=== PATIENT | male | born 1955 | race Caucasian/White ===

== ENCOUNTER 2022-03-08 22:46 | Emergency (ER) | payer OTHER, SELFPAY ==
[2022-03-08 23:02] VITALS: BP 119/80; PULSE 63; RESP 18; TEMP 36.6; O2SAT 98; BMI 24.5
[2022-03-08] MEDS: TETRACAINE 0.5% OPHTH 2 DROP EYE-BOTH (23:18)
[2022-03-08] MEDS: FLUORESCEIN SODIUM TOPICAL STRIP 1 STRIP EYE-BOTH (23:18)
--- NOTE | 2022-03-08 23:27 | ED_ITS ---
HPI - General Adult General Time Seen by Provider: 23:28 Date Seen: 03/08/22 Chief complaint: Eye Problems Stated complaint: object rt eye Time Seen by Provider: 03/08/22 23:01 Source: patient and family Mode of arrival: ambulatory Limitations: no limitations History of Present Illness HPI narrative: 66-year-old male who comes in with foreign body sensation right eye. He was working in once today, noted the right eye felt irritated but initially did not feel like there was anything in it. He tried to avoid rubbing the eye but now he has a foreign body sensation. Some blurry vision and tearing. Does not wear contacts. Related Data Home Medications Medication Instructions Recorded Confirmed Similasan Dry Eye Relief 1 drp PRN 03/08/22 atorvastatin 10 mg tablet 10 mg PO DAILY 03/08/22 03/08/22 butalbital 50 mg-acetaminophen 300 tab PO PRN pain 03/08/22 mg tablet pantoprazole 40 mg tablet,delayed 40 mg PO DAILY 03/08/22 03/08/22 release Allergies Allergy/AdvReac Type Severity Reaction Status Date / Time Penicillins Allergy Unknown Verified 03/08/22 23:09 [facility] Medical History (Updated 03/08/22 @ 23:31 by Jossue Manriquez MD) Anxiety Barretts esophagus BPH (benign prostatic hyperplasia) Chronic migraine w/o aura w/o status migrainosus, not intractable Chronic right shoulder pain Cochlear implant in place GERD (gastroesophageal reflux disease) Hyperlipidemia Major depression in full remission SHAWANDA (obstructive sleep apnea) Surgical History (Updated 03/08/22 @ 23:17 by Becky Khan RN) H/O vitrectomy History of arthroscopy of left shoulder History of arthroscopy of right shoulder S/P left knee arthroscopy S/P TURP (status post transurethral resection of prostate) Exam Narrative: Exam Narrative: General: well nourished , NAD Head: Atraumatic and normocephalic ENT: External ears and external nose are normal Eyes: Conjunctiva injection on the right, no blood or fluid in the anterior chamber. Pupil is reactive to light and accommodation. Tetracaine instilled with resolution of foreign body sensation, No foreign body seen, under fluorescein exam there is a small corneal abrasion superiorly at about 1 o'clock Neck: Full spontaneous range of motion of the neck Lungs: No respiratory distress Musculoskeletal: No tenderness or deformity Neurologic: No gross focal neurologic deficits Skin: No rashes Psych: Mood and affect are appropriate Const: Vital Signs, click to edit/add: Vital Signs - 24 hr 03/08/22 23:02 Temperature 97.8 F Pulse Rate [Right Pulse Oximeter] 63 Respiratory Rate 18 Blood Pressure [Le ft Upper Arm] 119/80 Pulse Oximetry 98 Oxygen Delivery Me thod Room Air Course Course Hospital Course: Patient seen examined, prior records reviewed. Patient with foreign body sensation of the right eye, no definite foreign body exposure and no foreign body seen on exam, there is a small corneal abrasion. No findings for iritis, glaucoma, globe rupture or hyphema. Patient will be discharged with erythromycin ointment and follow-up with eye clinic on Wednesday if not feeling better. Vital Signs Vital signs: Initial Vital Signs Temperature 97.8 F 03/08/22 23:02 Temperature Source Temporal Artery Scan 03/08/22 23:02 Pulse Rate 63 03/08/22 23:02 Pulse Rhythm 03/08/22 23:02 Respiratory Rate 18 03/08/22 23:02 Blood Pressure 119/80 03/08/22 23:02 Blood Pressure Mean 93 03/08/22 23:02 Blood Pressure Position Sitting 03/08/22 23:02 Pulse Oximetry 98 03/08/22 23:02 Oxygen Delivery Method 03/08/22 23:02 Vital Signs Temperature 97.8 F 03/08/22 23:02 Pulse Rate 63 03/08/22 23:02 Respiratory Rate 18 03/08/22 23:02 Blood Pressure 119/80 03/08/22 23:02 Pulse Oximetry 98 03/08/22 23:02 Oxygen Delivery Method 03/08/22 23:02 Temperature 97.8 F 03/08/22 23:02 Pulse Rate 63 03/08/22 23:02 Respiratory Rate 18 03/08/22 23:02 Blood Pressure 119/80 03/08/22 23:02 Pulse Oximetry 98 03/08/22 23:02 Oxygen Delivery Method 03/08/22 23:02 Discharge Plan Discharge Clinical Impression: Corneal abrasion Patient Disposition: Home, Self-Care Condition: Stable Instructions: Corneal Abrasion (DC) Additional Instructions: Apply erythromycin ointment 3 times a day. Follow up in eye clinic on Wednesday if your symptoms are not significantly better Activity Level: No Restrictions Discharge Diet: Regular Prescriptions: No Action atorvastatin 10 mg tablet 10 mg PO DAILY pantoprazole 40 mg tablet,delayed release (DR/EC) 40 mg PO DAILY butalbital-acetaminophen 50-300 mg tablet PO PRN (Reason: pain) Similasan Dry Eye Relief drops 1 drp PRN Label Comments: Similasan Dry Eye Relief Homeopathic eye drops with natural active ingredients Follow Up/Referrals: Deion Wagner MD [Primary Care Provider] - Stand Alone Forms: [email or web address] Info Instructions
== END 2022-03-09 00:15 | disposition home or self-care (01) ==
LOC: ED 23:46
PROVIDERS: Emergency Provider Family Medicine; PCP Family Medicine
DX: S05.01XA Injury of conjunctiva and corneal abrasion without foreign body, right eye, initial encounter (principal)
CPT/HCPCS: 99283; A9270

== ENCOUNTER 2022-05-15 14:15 | Outpatient (CLI) | payer OTHER, SELFPAY ==
[2022-05-15 15:14] LABS: Albumin* 4.4 g/dL (3.3-5.0); Chloride* 102 mmol/L (96-114)
[2022-05-15 15:15] LABS: Potassium* 4.6 mmol/L (3.6-5.1); Sodium* 137 mmol/L (135-149)
[2022-05-15 15:17] LABS: Alkaline Phosphatase* 62 U/L (40-150); Aspartate Amino Transferase* 30 U/L (12-35); Bilirubin Direct* 0.2 mg/dL (0.0-0.5); Bilirubin Total* 0.6 mg/dL (0.1-1.5); Blood Urea Nitrogen* 20 mg/dL (7-30); Calcium* 8.6 mg/dL (8.4-10.6); Carbon Dioxide* 26 mmol/L (20-32); Cholesterol* 223 mg/dL (90-199); Creatinine* 0.8 mg/dL (0.5-1.5); Estimated Glomerular Filt Rate 99 ml/min; Glucose* 83 mg/dL (60-115); Total Protein* 7.1 g/dL (6.0-8.3); Triglycerides* 206 mg/dL (40-149)
[2022-05-15 15:18] LABS: Alanine Aminotransferase* 35 U/L (4-50); HDL Cholesterol* 52 mg/dL (>=40); LDL Cholesterol Calculated 130 mg/dL (<100)
[2022-05-15 15:47] LABS: PSA Screen* 3.29 ng/mL (0.10-4.00)
== END 2022-05-15 14:16 | disposition home or self-care (01) ==
PROVIDERS: PCP Family Medicine; Visit Provider Family Medicine
DX: Z00.00 Encounter for general adult medical examination without abnormal findings (principal); E78.5 Hyperlipidemia, unspecified; Z12.5 Encounter for screening for malignant neoplasm of prostate
CPT/HCPCS: 80048; 80061; 80076; 84153

== ENCOUNTER 2023-01-18 09:02 | Outpatient (CLI) | payer MEDICARE, OTHER, SELFPAY | END 2023-01-18 09:03 | disposition home or self-care (01) | PROVIDERS: PCP Family Medicine; Visit Provider Family Medicine | DX: Z01.818 Encounter for other preprocedural examination (principal); E78.5 Hyperlipidemia, unspecified; F33.9 Major depressive disorder, recurrent, unspecified | CPT/HCPCS: 80048; 85025 ==

== ENCOUNTER 2023-05-07 13:13 | Outpatient (CLI) | payer MEDICARE, OTHER, SELFPAY | END 2023-05-07 13:14 | disposition home or self-care (01) | PROVIDERS: PCP Family Medicine; Visit Provider Family Medicine | DX: E78.5 Hyperlipidemia, unspecified (principal) | CPT/HCPCS: 80061; 84460 ==

== ENCOUNTER 2023-07-14 08:57 | Day surgery (SDC) | payer MEDICARE, OTHER, SELFPAY ==
[2023-07-14] MEDS: TETRACAINE 0.5% OPHTH 1 DROP EYE-LEFT ×2 (09:10→09:14)
[2023-07-14] MEDS: KETOROLAC OPHTH 0.5% 1 DROP EYE-LEFT ×3 (09:13→09:21)
[2023-07-14] MEDS: SODIUM CHLORIDE 0.9 % (FLUSH) 10 ML SYRINGE IVF (09:15)
[2023-07-14 09:23] VITALS: BP 113/73; PULSE 56; RESP 16; TEMP 36.6; O2SAT 94; BMI 26.9
--- NOTE | 2023-07-14 09:28 | SUR.PREOP ---
The eye drops brought by the patient Prednisolone) are examined and I have determined they are labeled by the patient's pharmacy for this patient as prescribed by the surgeon. The bottles are intact, recently obtained and appear to be correct. Ketorolac obtained by [facility] pharmacy.
[2023-07-14] MEDS: TETRACAINE 0.5% OPHTH 2 DROP EYE-LEFT (10:39)
[2023-07-14] MEDS: BALANCED SALT IRRIG SOLN 15 ML EYE-LEFT (10:42)
[2023-07-14 11:21] VITALS: BP 112/74; PULSE 53; RESP 16; TEMP 36.8; O2SAT 98
--- NOTE | 2023-07-14 11:55 | W.PM.OPTPROC ---
Procedure Note Date of procedure: 07/14/23 [facility] bill your pro fee for this procedure?: Yes Procedure Description: SURGEON: Dasha Smith MD PREOPERATIVE DIAGNOSIS: 1. Nuclear sclerotic cataract, left eye. 2. Miosis, left eye. POSTOPERATIVE DIAGNOSIS: 1. Nuclear sclerotic cataract, left eye. 2. Miosis, left eye. NAME OF OPERATION: Phacoemulsification of cataract with posterior chamber intraocular lens implantation in the left eye with pupilloplasty. ANESTHESIA: Topical. ESTIMATED BLOOD LOSS: Less than 2 cc. COMPLICATIONS: None. PATHOLOGY SPECIMEN: None. INDICATIONS: See consult note for details. The risks, benefits and alternatives of the procedure were explained to the patient, who elected to proceed and signed informed consent to do so. PROCEDURE: The patient was brought to the pre-holding area where the left eye was identified as the operative eye. I placed my initials above this eye. The patient received eye drops consisting of 0.5% tetracaine, 1% tropicamide, 10% phenylephrine, and 0.5% ketorolac. The patient was then brought to the operating room where the left eye was again identified as the operative eye. The eye was prepped with Betadine and draped in the usual sterile ophthalmic fashion. A #15 super-sharp blade was used to create a paracentesis site. 1% non-preserved intracameral lidocaine was injected into the anterior chamber. Endocoat was injected into the anterior chamber. A 2.4 mm keratome was used to create a three-plane self-sealing incision 1 mm anterior to the temporal limbus. A #15 super-sharp blade was used to create four additional paracentesis sites. Four Grieshaber iris hooks were placed in order to stretch the iris. A cystotome was used to create an anterior capsular leaflet. The Utrata forceps were used to extend this to form a continuous curvilinear capsulorrhexis. Hydrodissection was performed. The cataract was removed with phacoemulsification using the [id number] technique. The irrigation and aspiration tip was used to remove the remaining cortex. Healon was injected into the capsular bag. An ARIAN ZCB00 intraocular lens of 23.5 diopters was injected into the capsular bag. The four Grieshaber iris hooks were removed. The irrigation and aspiration tip was used to remove the remaining viscoelastic. Miostat was injected into the anterior chamber. Balanced salt solution on a cannula was used to hydrate the wound, and the wound was found to be watertight. The pupil was noted to be round. DISPOSITION: The patient was taken to the recovery room and discharged to home in stable condition. The patient was instructed to call me or go to the emergency department with any sudden change, including dramatic loss of vision, severe pain in the eye or eyebrow region, nausea, or vomiting. The patient will follow up in the clinic tomorrow morning.
--- NOTE | 2023-07-14 12:31 | W.ANESCHARGE ---
Anesthesia Charges Start Date/Time Anesthesia Start Date: 07/14/23 Anesthesia Start Time: 10:34 Stop Date/Time Anesthesia Stop Date: 07/14/23 Anesthesia Stop Time: 11:12
== END 2023-07-14 11:37 | disposition home or self-care (01) ==
PROVIDERS: PCP Family Medicine; Visit Provider Ophthalmology
PROC: (CPT 66982; principal; 2023-07-14 09:00)
DX: H25.12 Age-related nuclear cataract, left eye (principal); H57.03 Miosis
CPT/HCPCS: 66982; 00142; A9270; J2250; J2405; J3010; V2632

== ENCOUNTER 2023-07-28 09:00 | Day surgery (SDC) | payer MEDICARE, OTHER, SELFPAY ==
[2023-07-28] MEDS: TETRACAINE 0.5% OPHTH 1 DROP EYE-RIGHT ×2 (09:00→09:05)
[2023-07-28] MEDS: KETOROLAC OPHTH 0.5% 1 DROP EYE-RIGHT ×3 (09:00→09:10)
--- OUTSIDE RECORDS SUMMARY | 2023-07-28 09:05 | XMS_ITS | Encounter Summary ---
Author Name Unknown Organization [facility] Address [address] [place] [address] Care Team Providers Care Wealth Management Consultant Name Role Phone None Reported, Pcp Primary Care Provider Unavail able Reason for Visit * Appointment Request (Routine) - Closed Specialty Diagnoses / Procedures Referred By Contangelica t Referred To Contact Otorhinolaryngology Diagnoses Bone Anchored Hearing Aid (BAHA) Fitting Angelica Zuluaga M.D. [address] [place] [phone] Referral ID Status Reason Start Date Expiration Date Visits Re quested Visits Authorized [id number] Closed 12/31/2022 12/31/2023 2 2 Encounter Details Date Type Department Care Team (Latest Contact Info) Description 02/19/2023 11:30 AM CDT Office Visit Department of Otorhinolaryngology in [place], [place] [address] [place] [phone] Angelica Zuluaga M.D. 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 No 10/28/2022 Within the last year, have y ou been humiliated or emotionally abused in other ways by your partner or ex-partner? No Within the last year, have y ou been kicked, hit, slapped, or otherwise physically hurt by your partner or ex-partner? No 10/28/2022 Within the last year, have y ou been raped or forced to have any kind of sexual activity by your partner or ex-partner? No 10/28/2022 Social Connection and Isolation Panel [NHANES] A nswer Date Recorded In a typical week, how many times do you talk on the phone with family, friends, or neighbors? Twice a week 10/28/2022 How often do you get together with friends or re latives? Once a week 10/28/2022 How often do you attend episcopal or rastafarian serv ices? Never 10/28/2022 Do you belong to any clubs o r organizations such as episcopal groups, unions, fraternal or athletic groups, or school groups? No 10/28/2022 How often do you attend meet ings of the clubs or organizations you belong to? Never 10/28/2022 Are you , , di vorced, , never , or living with a partner? 10/28/2022 AUDIT-C Answer Date Recorded Q1: How often do you have a drink containing alc ohol? 2-4 times a month 10/28/2022 Q2: How many drinks containi ng alcohol do you have on a typical day when you are drinking? 1 or 2 10/28/2022 Q3: How often do you have si x or more drinks on one occasion? Less than monthly 10/28/2022 Overall Financial Resource Strain (CARDIA) Answe r Date Recorded How hard is it for you to pa y for the very basics like food, housing, medical care, and heating? Not hard at all 10/28/2022 [facility] [place] of Occupat ional Health - Occupational Stress Questionnaire Answer Date Recorded Do you feel stress - tense, restless, nervous, or anxious, or unable to sleep at night because your mind is troubled all the time - these days? Very much 10/28/2022 Exercise Vital Sign Answer Date Recorde d On average, how many days pe r week do you engage in moderate to strenuous exercise (like a brisk walk)? 0 days 10/28/2022 On average, how many minutes do you engage in exercise at this level? 0 min 10/28/2022 Hunger Vital Sign Answer Date Recorded Within the past 12 months, y ou worried that your food would run out before you got the money to buy more. Never true 10/29/19 Within the past 12 months, t he food you bought just didn't last and you didn't have money to get more. Never true 10/28/2022 PRAPARE - Transportation Answer Date Re corded In the past 12 months, has l ack of transportation kept you from medical appointments or from getting medications? No 10/04 In the past 12 months, has l ack of transportation kept you from meetings, work, or from getting things needed for daily living? No 10/28/2022 Housing Stability Vital Sign Answer Jenaro e Recorded In the last 12 months, was t here a time when you were not able to pay the mortgage or rent on time? No 10/28/2022 In the last 12 months, how many places have you lived? 1 10/28/2022 In the last 12 months, was t here a time when you did not have a steady place to sleep or slept in a detention (including now)? No 10/28/2022 Nutrition Answer Date Recorded Nutrition: EVOO Fat Source No 10/28 On average, how many serving s of fruits and vegetables do you eat per day (serving size is equal to 1 cup or approximately the size of a tennis ball)? 0-1 10/28/2022 Dental Answer Date Recorded Dental: Regular Dentist Yes 10/29/19 Employment Answer Date Recorded Employment status Employed but not working due sarika galdamez 10/28/2022 Education Answer Date Recorded What is the highest level of school you have completed or the highest degree you have received? Some college, no degree 10/28/2022 Sex and Gender Information Value Date Recorded Sex Assigned at Male 10/28/2022 11:01 AM CDT Gender Identity Male 10/28/2022 11:01 AM CDT Sexual Orientation Straight 10/28/2022 11 :01 AM CDT documented as of this encounter Progress Notes * Angeilca Zuluaga M.D. - 02/19/2023 11:30 AM CDT FOLLOW-UP CLINIC NOTE OBJECTIVE CHIEF COMPLAINT/PUPROSE OF VISIT: Mr. Kiran is a 67 y.o. male who underwent removal of a cochlear attract and placement of an OSIA HISTORY OF PRESENT ILLNESS: Overall he has been doing very well. He does not report any significant problems in the postoperative setting. No drainage or concerns regarding his wound or incision. He is not yet met with spray unit feeder to turn on the device. He is no concerns for me toda The following portions of the patient's history were reviewed and updated as appropriate: allergies, current medication, family history, medical history, surgical history, social history, problem list. SUBJECTIVE FOCUSED PHYSICAL EXAM: General: Awake, alert, oriented times three. In no acute distress. Head: Normocephalic, atraumatic. Face: Symmetric. Ears: Pinnae are unremarkable. Operated ear shows well-healed postauricular incision. Devices in good placement. No concerns for skin breakdown or separation of the wound edges. Neuro: Cranial nerves III through XII are grossly intact. ASSESSMENT / PLAN #1 conductive Hearing loss status post conversion of cochlear attract to an OSIA It was a pleasure to see Mr. Kiran today. He has been doing well since surgery and does not report any complications in the immediate postoperative setting. We discussed the possibility of skin breakdown related to the magnet where the device in the future and he should watch out for this. He is going to get the device activated today. He can follow up with me as needed for any additional concerns. Plan: - device activation today - follow up as needed PATIENT EDUCATION Ready to learn, no apparent learning barriers were identified; learning preferences include listening. Explained diagnosis and treatment plan; patient expressed understanding of the content. 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
--- OUTSIDE RECORDS SUMMARY | 2023-07-28 09:05 | XMS_ITS | Encounter Summary ---
Author Name Unknown Organization [facility] Address [address] [place] [address] Care Team Providers Care [place] Clerk Name Role Phone None Reported, Pcp Primary Care Provider Unavail able Reason for Visit * Appointment Request (Routine) - Closed Specialty Diagnoses / Procedures Referred By Contangelica t Referred To Contact Otorhinolaryngology Diagnoses Bone Anchored Hearing Aid (BAHA) Fitting Angelica Zuluaga M.D. [address] [place] [phone] Referral ID Status Reason Start Date Expiration Date Visits Re quested Visits Authorized [id number] Closed 12/31/2022 12/31/2023 2 2 Encounter Details Date Type Department Care Team (Latest Contact Info) Description 02/19/2023 1:00 PM CDT Diagnostic Department of Otorhinolaryngology in [place], [place] [address] [place] [phone] Emory White Au.D., C.C.C.-A [address] [place] [phone] Mixed Conductive And Sensorineural Hearing Loss Unilateral [...] week 10/28/2022 How often do you attend jehovah's witness or yarsanism serv ices? Never 10/28/2022 Do you belong to any clubs o r organizations such as jehovah's witness groups, unions, fraternal or athletic groups, or [...] and heating? Not hard at all 10/28/2022 [facility] [place] of Occupat ional Health - Occupational Stress [...] place to sleep or slept in a group home (including now)? No 10/28/2022 Nutrition Answer Date [...] as of this encounter Progress Notes * Emory White Au.D., C.C.C.-A - 02/19/2023 1:00 PM CDT SUBJECTIVE REFERRAL: Jossue Webb M.D. CHIEF COMPLAINT/REASON FOR VISIT Bone conduction device fitting, accompanied by his Alanna. HISTORY Rashad Kiran is a 67 y.o. male with moderately severe to severe mixed hearing loss in the right ear, normal hearing sensitivity 250-2kHz, mild to moderate sensorineural hearing loss 3k-8kHz in the left ear. His last audiogram was completed 10/29/2022. Dr. Webb's service removed the Cochlear attract implant and then placed a Coclear [id number] on the right side 01/21/2023. OBJECTIVE Mr. Kiran was fit with the following: Right Various Exceptionalities Teacher Cochlear Model Osia 2 Serial number [id number] Warranty date 02/19/2025 Magnet Strength 4 Phone Connectivity Paired to [employer] Smart jean Accessory TV Streamer [id number] Digital Link Calibration measured a coil to coil distance of <2mm. Feedback analyzer and bone conduction direct were measured. Aided testing was performed in soundfield. Please see electronic audiogram. ASSESSMENT/PLAN Care, use, and adjustment were explained and demonstrated to the patient. The patient practiced manipulating the device without difficulty. All questions were answered and the patient expressed an understanding. 1. Begin daily use of bone conduction device. 2. Return for follow-up in 1 month. 3. Contact the clinic with questions or concerns. 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 Osia bone conduction device fitting HISTORY OF PRESENT COMPLAINT Mr. Rashad Kiran is a 67 year old patient who presents for an Osia bone conduction device fitting. OBJECTIVE See Audiological Evaluation Form ASSESSMENT/PLAN S=Soundfield with left ear plugged AR: Osia with left ear plugged CARE PLAN Follow up as needed. 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 Expected: 02/20/2024 (Approximate), Expires: 05/22/2024 documented as of this encounter Procedures Procedure Name Priority Date/Time Associated Diagnosis Comments AUDIOLOGY EVALUATION 02/19/2023 12:00 AM CDT documented in this encounter Results * AUDIOLOGY EVALUATION (02/19/2023 12:00 AM CDT) 02/19/2023 Emory Otero, C.C.C.-A [facility] ORDERABLES documented in this encounter Visit Diagnoses Diagnosis 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
--- OUTSIDE RECORDS SUMMARY | 2023-07-28 09:05 | XMS_ITS | Clinical Summary ---
Author Name Unknown Organization [facility] Address [address] [place] [address] Care Team Providers Care Fountain Pen Nibs Inspector Name Role Phone None Reported, Pcp Primary Care Provider Unavail able Source Comments Patient records contain information from all sites at [facility]. For routine questions regarding patient records, call [phone] during business hours, M-F 8:00 AM - 5:00 PM Central Time. Record requests for emergency care only can be directed to [phone] at any time.[facility] Allergies Active Allergy Reactions Criticality Noted Date Comments Penicillins Other (see comments) ,Hives (Reselect Reaction),Itching,Rash 07/05/1971 Medications Medication Sig Dispensed Refills Start Date End Date Status atorvastatin (LIPITOR) 20 mg tablet Take 20 mg by mouth at bedtime. 0 10/08/2022 Active butalbital-acetamin ophen-caff (FIORICET) 50-300-40 mg per capsule every 6 (six) hours as needed for migraine. 0 10/17/2022 Active esomeprazole (NexIUM) [address] capsule Take 40 mg by mouth every morning before breakfast. 0 10/18/2022 Active tamsulosin (FLOMAX) 0.4 mg 24 hr capsule daily. 0 08/07/2022 Active traZODone (DESYREL) 150 mg tablet Take 150 mg by mouth at bedtime as needed for sleep. Takes trazodone HCL tabs, one 150 mg tablet daily. 0 10/13/2022 Active venlafaxine XR (EFFEXOR-XR) 150 mg 24 hr capsule Take 150 mg by mouth daily. 0 10/22/2022 Active polyethylene glycol (MIRALAX) 17 gram/dose oral powder Take 17 g by mouth as needed for constipation. Dissolve each 17 g dose in 240 mL (8 ounces) of beverage. (Uses either Miralax or Metamucil interchangeably.) 0 Active escitalopram (LEXAPRO) 20 mg tablet Take 20 mg by mouth at bedtime. 0 01/19/2023 Active oxyCODONE (ROXICODONE) 5 mg immediate release tabletIndications:A cute Pain Take 1 tablet (5 mg total) by mouth every 4 (four) hours as needed for severe pain or score 7-10 of 10 Indication: Acute Pain. 5 tablet 0 01/21/2023 Active acetaminophen (TYLENOL) 500 mg tablet Take 2 tablets (1,000 mg total) by mouth every 6 (six) hours as needed for moderate pain or score 4-6 of 10 or mild pain or score 1-3 of 10. 0 01/21/2023 Active Additional Information Patient taking differently:1,000 mg oral Every 6 hours PRN, moderate pain or score 4-6 of 10, mild pain or score 1-3 of 10,Takes four 500 mg at a time for headaches., Informant: Self, Reported on 02/17/2023 ibuprofen (ADVIL,MOTRIN) 200 mg tablet Take 3 tablets (600 mg total) by mouth every 6 (six) hours as needed for pain. Take with food. 0 01/21/2023 Active propranoloL (INDERAL) 10 mg tablet Take 10 mg by mouth 2 (two) times a day. Takes one 10 mg tablet twice daily, total of 20 mg. 0 02/16/2023 Active aspirin-acetaminoph en-caffeine (EXCEDRIN MIGRAINE) 250-250-65 mg per tablet Take 1 tablet by mouth every 6 (six) hours as needed for headaches (Migraines as needed.). 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 Never 10/28/2022 Do you belong to any clubs o r organizations such as temple groups, unions, fraternal or athletic groups, or [...] and heating? Not hard at all 10/28/2022 [facility] [place] of Occupat ional Health - Occupational Stress [...] place to sleep or slept in a care home (including now)? No 10/28/2022 Nutrition Answer [...] Employment status Employed but not working due t kevan [employer] 10/28/2022 Education Answer Date Recorded What is the highest level of school you have completed or the highest degree you have received? Some college, no degree 10/28/2022 Sex and Gender Information Value Date Recorded Sex Assigned at Male 10/28/2022 11:01 AM CDT Gender Identity Male 10/28/2022 11:01 AM CDT Sexual Orientation Straight 10/28/2022 11 :01 AM CDT Last Filed Vital Signs Vital Sign Reading Time Taken Comments Blood Pressure 139/91 01/21/2023 8:31 PM CDT Pulse 59 01/21/2023 8:31 PM CDT Temperature 36.7 ??C (98.1 ??F) 01/21/2023 7:30 PM CD T Respiratory Rate 18 01/21/2023 8:31 PM CDT Oxygen Saturation 95% 01/21/2023 8:31 PM CDT Inhaled Oxygen Concentration - - Weight 81.8 kg (180 lb 5.4 oz) 01/21/2023 12:40 PM CDT Height 177.8 cm (5' 10) 01/21/2023 12:40 PM CDT Body Mass Index 25.88 01/21/2023 12:40 PM CDT Plan of Treatment Health Maintenance Due Date Last Done Comments CT Colonography 1957 Cologuard 1957 Colonoscopy 1957 Colorectal Cancer Screening 1957 FIT 1957 Fasting Glucose for Diabetes Screening 1957 HIV Screening 1957 Hepatitis C Screening 1957 Visit: Annual, age 65+ (or Medicare and <65) 1957 Depression Screening (Annual PHQ-2) 07/05/2023 Fall Risk Screen (Annual) 07/05/2023 DTaP,Tdap,and Td Vaccines (2 - Td or Tdap) 05/05/2031 05/05/2021 Zoster Vaccines Completed 03/13/2020, 09/16/2019 Pneumococcal vaccine (65+ years) Completed 01/19/20 23 Influenza Vaccine Completed 03/19/2023, , 03/29/2021, Additional history exists COVID-19 Vaccine Completed 04/01/2023, , 11/17/2021, Additional history exists Medical Devices Implanted Type Area Prosthodontist/Owner Device Identifier Shelf Expiration Date Model / Serial / Lot Abtmnt Hd Ci Baha Fxtr [id number] [id number] - [id number] Implanted:Qty: 1 on 07/05/2016 at [facility] Explanted: 023 (Quantity not on file) BAHA Device Right: Ear Cochlear Limited 06/02/2027 [id number] / / [id number] Description:Baha device impl anted approximately [address] a Dr[address] Webb, unknown entry. Explanted 01/21/2023. Osia 2 Sound Processor Implanted:Qty: 1 on 01/21/2023 by Jossue Webb M.D. at [facility] Cochlear Implant Right: Ear Cochlear Limited [id number] / / Explanted Type Area Prosthodontist/Owner Device Identifier Shelf Expiration Date Model / Serial / Lot Cochlear Implant Implanted:Angelica Dominguez M.D. (Quantity not on file) Cochlear Implant Right: Ear Advance Directives For more information, please contact: [phone] Latest Code Status on File Code Status Date Activated Date Inactivated Comments Full Code 01/21/2023 7:38 PM 01/21/2023 10:42 PM Question Answer Comments Full Code: Not Discussed Due to: Patient does not have the capaci ty Care Teams Fountain Pen Nibs Inspector Relationship Specialty Start Date End Date None Reported, Pcp PCP - General Family Medicine 01/21/23
--- OUTSIDE RECORDS SUMMARY | 2023-07-28 09:05 | XMS_ITS | Referral Summary ---
Author Name Unknown Organization [facility] Address [address] [place] [address] Care Team Providers Care Talent Acquisition Director Name Role Phone None Reported, Pcp Primary Care Provider Unavail able Source Comments Patient records contain information from all sites at [facility]. For routine questions regarding patient records, call [phone] during business hours, M-F 8:00 AM - 5:00 PM Central Time. 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 Never 10/28/2022 Do you belong to any clubs o r organizations such as druze groups, unions, fraternal or athletic groups, or [...] and heating? Not hard at all 10/28/2022 [facility] [place] of Occupat ional Health - Occupational Stress [...] place to sleep or slept in a intermediate (including now)? No 10/28/2022 Nutrition Answer Date [...] 01/21/2023 12:40 PM CDT Plan of Treatment Not on file Medical Devices Implanted Type Area Agency Legal Counsel Device Identifier Shelf Expiration Date Model / Serial / Lot Abtmnt Hd Ci Baha Fxtr [id number] 4 - [id number] Implanted:Qty: 1 on 07/05/2016 at [facility] Explanted: 023 (Quantity not on file) BAHA Device Right: Ear Cochlear Limited 06/02/2027 [id number] / / [id number] Description:Baha device impl anted approximately [address] a Dr. Webb, unknown entry. Explanted 01/21/2023. Osia 2 Sound Processor Implanted:Qty: 1 on 01/21/2023 by Jossue Webb M.D. at [facility] Cochlear Implant Right: Ear Cochlear Limited [id number] / / Explanted Type Area Agency Legal Counsel Device Identifier Shelf Expiration Date Model / Serial / Lot Cochlear Implant Implanted:Angelica Dominguez M.D. (Quantity not on file) Cochlear Implant Right: Ear Advance Directives For more information, please contact: [phone] Latest Code Status on File Code Status Date Activated Date Inactivated Comments Full Code 01/21/2023 7:38 PM 01/21/2023 10:42 PM Question Answer Comments Full Code: Not Discussed Due to: Patient does not have the [facility] Care Teams Talent Acquisition Director Relationship Specialty Start Date End Date None Reported, Pcp PCP - General Family Medicine 01/21/23
--- OUTSIDE RECORDS SUMMARY | 2023-07-28 09:05 | XMS_ITS | Encounter Summary ---
Author Name Unknown Organization [facility] Address [address] [place] [address] Care Team Providers Care Manager Night Name Role Phone None Reported, Pcp Primary Care Provider Unavail able Reason for Visit * Reason Onset Date Comments Blood Pressure 02/17/2023 Encounter Details Date Type Department Care Team (Latest Contact Info) Description 02/17/2023 12:30 PM CDT Clinical Communication Virtual Review in [place], [place] [address] [place], [place] [id number] Blood Pressure Social History Tobacco Use Types Packs/Day Years [...] often do you attend jehovah's witness or jew serv ices? Never 10/28/2022 Do you belong [...] and heating? Not hard at all 10/28/2022 [facility] [place] of Occupat ional Health - Occupational Stress [...] money to buy more. Never true 10/29/19 23 Within the past 12 months, t he [...] place to sleep or slept in a fci (including now)? No 10/28/2022 Nutrition Answer Date [...] AM CDT documented as of this encounter Plan of Treatment Not on file documented as of this encounter Visit Diagnoses Not on filedocumented in this encounter Care Teams Manager Night Relationship Specialty Start Date End Date None Reported, Pcp PCP - General Family Medicine 01/21/23 documented as of this encounter
--- OUTSIDE RECORDS SUMMARY | 2023-07-28 09:05 | XMS_ITS ---
Author Name Unknown Organization [facility] Address [address] [place] [address] Care Team Providers Care All Round Logger Name Role Phone Unavailable Unavailable Unavailable Surgery Details Not on file Complications Check Surgery Details section. Procedure Estimated Blood Loss Check Surgery Details section. Procedure Findings Check Surgery Details section. Procedure Specimens Taken Check Surgery Details section.
--- OUTSIDE RECORDS SUMMARY | 2023-07-28 09:05 | XMS_ITS | Encounter Summary ---
Author Name Unknown Organization [facility] Address [address] [place] [address] Care Team Providers Care Traffic Supervisor Name Role Phone None Reported, Pcp Primary Care Provider Unavail able Reason for Visit * Auth/Cert (Routine) Specialty Diagnoses / Procedures Referred By Katelyn baum Referred To Contact Diagnoses Loss Hearing Right Loss Hearing Right [H91.91] Procedures NV IMPLTJ OI IMPLT SKL TC KIANA NV AUDITORY OSSEO DEV INT/EXT COMP PLACEMENT BONE ANCHORED HEARING AID,OSIA, proceed as indicated Referral ID Status Reason Start Date Expiration Date Visits Re quested Visits Authorized [id number] 1 1 Encounter Details Date Type Department Care Team (Late st Contact Info) Description 01/21/2023 5:29 PM CDT Anesthesia Event [facility] [address] [place] [phone] Pablo Field M.D. [address] [place] [phone] Raúl Akers M.D., M.P.H. [address] [place] [phone] Anesthesia Record Procedure Summary Procedure Name Responsible Anesthesiologist Anesthesia Start Time Anesthesia Stop Time PLACEMENT BONE ANCHORED HEARING AID, OSIA (Right) Pablo Field M.D. 01/21/23 1729 01/21/23 1933 Events Date Time Event Comment 01/21/2023 1729 An Start Machine/Equipme nt Checked Infection Precautions Followed Procedure/Site Verified NPO Status Verified Supine Standard ASA Monitors Applied 1738 An Induction 1740 An Intubation 1743 Turnover to Proceduralist 1815 Proc Start 1915 Proc Fin 1916 Turnover to ANE Staff 1918 Airway Removal Criteria Met 1919 Extubation/Airway Removed 1920 an stop data 1932 An End I completed my handoff to the receiving staff during which we 1. Identified the patient 2. Identified the responsible provider 3. Reviewed the pertinent medical history 4. Discussed the surgical course 5. Reviewed intra-op anesthesia management and issues during anesthesia 6. Set expectations for post-procedure period 7. Allowed opportunity for questions and acknowledgement of understanding. Meds Name Total fentanyl injection 50 mcg/mL 175 mcg lidocaine 2% (mg) injection 100 mg rocuronium 10 mg/mL injection 20 mg succinylcholine 20 mg/mL injection 100 m g ePHEDrine PF 5 mg/mL syringe injection 5 mg ondansetron 4 mg/2 mL injection 4 mg propofol 10 mg/mL infusion 903.89 mg propofol 10 mg/mL injection 270 mg dexAMETHasone (DECADRON) injection 4 mg/ mL 4 mg ceFAZolin injection 2,000 mg (ANCEF) 2 g haloperidol 5 mg/mL injection 1 mg Lactated Ringers Free Drip 500 mL * Agents No agents on file. * Blood No blood administrations on file. Lines, Drains, and Airways Type Details Placement Removal Wound 01/21/23; 1816; N; 01/21/23; Incision; Ear; Right; surgical incision; gauze/head wrap 01/21/231816 by Lindsey Centeno, R.N. Peripheral IV Placement Date: 01/03 ; Placement Time: 1626; Catheter Size: 20 G; Orientation: Left; Location: Forearm; Site Prep: Chlorhexidine (Preferred); Inserted by: [facility]; Removal Date: 01/21/23; Removal Time: 203601/21/231626 by Man Locke 01/21/232036 by Yu Centeno, RGuanacoNGuanaco ETT Placement Date: 01/03 ; Placement Time: 1739 (created via procedure documentation); Mask Ventilation: Easy mask; Type: Standard ETT; Single Lumen Tube Size: 7.5 mm; Cuffed: Yes; Blade Size: Morris 2; Location: Oral; Grade View: Grade 1; Insertion Attempts: 1; Placement Verification: Bilateral breath sounds, Positive ETCO2, Symmetrical chest wall movement; Removal Date: 01/21/23; Removal Time: 191901/21/231739 by Marivel Hoffmann APRN, CRNA, D.N.P. 01/21/231919 by Rashad Moreno APRN, CRNA documented in this encounter Social History Tobacco Use Types Packs/Day Years [...] week 10/28/2022 How often do you attend sikhism or rastafari serv ices? Never 10/28/2022 Do you belong to any clubs o r organizations such as sikhism groups, unions, fraternal or athletic groups, or [...] and heating? Not hard at all 10/28/2022 [facility] of Occupat ional Health - Occupational Stress [...] place to sleep or slept in a senior care (including now)? No 10/28/2022 Nutrition Answer Date [...] AM CDT documented as of this encounter OR Notes * Anesthesia Postprocedure Evaluation - Pablo Field M.D. - 01/21/2023 8:17 PM CDT Patient: Rashad Kiran Procedure Summary Date: 01/21/23 Room / Location: [place] [address] / [facility] in [place], [place] Anesthesia Start: 1728 Anesthesia Stop: 1932 Procedure: PLACEMENT BONE ANCHORED HEARING AID, OSIA (Right) Diagnosis: Loss Hearing Right (Loss Hearing Right [H91.91].) Providers: Jossue Webb M.D. Responsible Provider: Pablo Field M.D. Anesthesia Type: general ASA Status: 2 Anesthesia Type: general Last vitals Vitals Value Taken Time BP 139/91 01/21/232014 Temp 36.7 ??C 01/21/23 193 Pulse 59 01/21/232015 Resp 16 01/21/23 2016 SpO2 95 % 01/21/23 2016 Vitals shown include unvalidated device data. Please reference Vitals flowsheet for most recent vital signs. Anesthesia Post Evaluation Patient Disposition: dismissal Cardiovascular status: hemodynamics (HR & BP) acceptable Respiratory status: patent airway with spontaneous effort Temperature: normothermic Oxygen requirements: room air Level of consciousness: awake Pain score: pain adequately controlled and/or at baseline Post Op nausea/vomiting: none Hydration status: euvolemic * Anesthesia Procedure Notes - Marivel Hoffmann APRN, ORACLE EBS CONSULTANT, D.N.P. - 01/21/2023 5:57 PM CDTAssociated Order(s): Airway Airway Date/Time: 01/21/2023 5:40 PM Performed by: Marivel Hoffmann APRN, CRNA, D.N.P. Authorized by: Lisa Alex M.D., M.P.H. Patient location during procedure: OR / Procedure Area PROCEDURE DETAILS: Mask difficulty assessment: easy mask Final airway type: direct laryngoscopy, intubation Laryngeal Manipulation: no Final airway difficulty of direct laryngoscopy (DL): 0-easy Final best view of glottic structures - Cormack/Lehane Score: grade 1 ETT location: oral Adult blade type: Morris 2 Adult tube size: 7.5 Adult ETT distance at teeth/gum: 23 Oral tube type: standard ETT Cuffed: yes Number of attempt to successful placement: 1 Airway confirmation: bilateral breath sounds, positive ETCO2 and bilateral chest rise Other previous techniques attempted: none PRE PROCEDURE DETAILS: Pre evaluation for airway management: procedure Urgency: elective Preop assessment of probable difficulty: no difficulty anticipated Preoxygenation: bag valve mask SEDATION / ANESTHESIA Anesthesia method: anesthesia POST PROCEDURE DETAILS: Procedure outcome: successful Airway event: no complications * Anesthesia Preprocedure Evaluation - Raúl Akers M.D., M.P.H. - 01/21/2023 4:39 PM CDT Preprocedure Anesthesia & H&P Assessment Procedure Summary Date/Time: 01/21/23 1447 Procedure: PLACEMENT BONE ANCHORED HEARING AID, OSIA, proceed as indicated. (Right) Diagnosis: Loss Hearing Right [H91.91] Pre-op diagnosis: Loss Hearing Right [H91.91]. Location: [address] 03 [facility] in [place], [place] Providers: Angelica Zuluaga M.D. Pertinent components of the patient's history including current problem list, medical history, surgical history, family history, social history, medications and allergies were reviewed. Present illness and pre-op diagnosis were confirmed. The planned surgery / procedure was verified with the patient / legal guardian. The patient's general health condition remains unchanged RELEVANT COMORBID CONDITIONS No relevant active problems OBJECTIVE PHYSICAL EXAMINATION Airway (HEENT) Mallampati: II TM Distance: >3 FB Neck ROM: Full Mouth Opening: >3 cm Cardiovascular Rhythm: Regular Rate: Normal Cardiovascular Assessment: cardiovascular normal Functional Capacity: >4 METS Pulmonary Pulmonary Assessment: Clear General / Constitutional Constitutional Assessment: Normal General State of Health:: healthy appearing and calm Neurological Neurologic Assessment: alert Dental Dental Assessment: dentition intact ASSESSMENT / PLAN ANESTHESIA PLAN ASA: 2 Anesthesia Plan: general Patient seen and allergies reviewed, anesthesia plan and risks discussed directly with patient /legal guardian or through an telemetry nurse. The use of blood products not discussed Approval to Proceed: approved for anesthesia documented in this encounter Plan of Treatment Not on file documented as of this encounter Procedures Procedure Name Priority Date/Time Associated Diagnosis Comments LDA ANE ENDOTRACHEAL AIRWAY Routine 01/21/2023 5:40 PM CDT documented in this encounter Results * LDA ANE ENDOTRACHEAL AIRWAY (01/21/2023 5:40 PM CDT) Narrative Marivel Hoffmann APRN, CRNA, D.N.P. - 01/21/2023 5:40 PM CDT Marivel Hoffmann APRN, CRNA D.N.P. ? 01/21/2023 ??5:57 PM Airway Date/Time: 01/21/2023 5:40 PM Performed by: Marivel Hoffmann APRN, CRNA, D.N.P. Authorized by: Lisa Alex M.D., M.P.H. ?? Patient location during procedure: OR / Procedure Area PROCEDURE DETAILS: Mask difficulty assessment: easy mask Final airway type: direct laryngoscopy, intubation Laryngeal Manipulation: no ?? Final airway difficulty of direct laryngoscopy (DL): 0-easy Final best view of glottic structures - Cormack/Lehane Score: grade 1 ETT location: oral Adult blade type: Morris 2 Adult tube size: 7.5 Adult ETT distance at teeth/gum: 23 Oral tube type: standard ETT Cuffed: yes Number of attempt to successful placement: 1 Airway confirmation: bilateral breath sounds, positive ETCO2 and bilateral chest rise Other previous techniques attempted: none PRE PROCEDURE DETAILS: Pre evaluation for airway management: procedure Urgency: elective Preop assessment of probable difficulty: no difficulty anticipated Preoxygenation: bag valve mask SEDATION / ANESTHESIA Anesthesia method: anesthesia POST PROCEDURE DETAILS: ? Procedure outcome: successful ?? Airway event: no complications Lisa Alex M.D., M.P.H. ANESTHESIA ORDERABLE S documented in this encounter Visit Diagnoses Not on filedocumented in this encounter Administered Medications Inactive Administered Medications - up to 3 most recent administrations Medication Order MAR Action Action Date Dose Rate Site ceFAZolin injection 2,000 mg (ANCEF) 2,000 mg (rounded from 2,045 mg = 25 mg/kg ? 81.8 kg), intravenous, Once, On Heather 01/21/23 at 1745, For 1 dose, Intra-Op, Administer within 1 hour prior to surgical incision If needed, reconstitute vial per package insert instructions. See IVAG for administration guidelines., Drug Monitoring Program: Pharmacist to adjust medication dosing based on indication and drug clearance factors., Indications: Prophylaxis, surgical Given 01/21/2023 5:53 PM CDT 2 g dexAMETHasone injection (DECADRON) intravenous, As needed, Starting on Heather 01/21/23 at 1752, Anesthesia Intra-op Given 01/21/2023 5:52 PM CDT 4 mg ePHEDrine (PF) injection intravenous, As needed, Starting on Heather 01/21/23 at 1758, Anesthesia Intra-op Given 01/21/2023 5:58 PM CDT 5 mg fentaNYL injection (SUBLIMAZE) intravenous, As needed, Starting on Heather 01/21/23 at 1738, Anesthesia Intra-op Given 01/21/2023 7:04 PM CDT 25 mcg Given 01/21/2023 6:29 PM CDT 50 mcg Given 01/21/2023 6:11 PM CDT 50 mcg haloperidol lactate injection (HALDOL) intravenous, As needed, Starting on Heather 01/21/23 at 1902, Anesthesia Intra-op Given 01/21/2023 7:02 PM CDT 1 mg lactated ringers intravenous, Continuous Infusion: Per Instructions PRN, Starting on Heather 7/20/23 at 1735, Anesthesia Intra-op New Bag 01/21/2023 5:35 PM CDT lidocaine (PF) (cardiac) injection intravenous, As needed, Starting on Heather 01/21/23 at 1738, Anesthesia Intra-op Given 01/21/2023 5:38 PM CDT 100 mg ondansetron (PF) injection (ZOFRAN) intravenous, As needed, Starting on Heather 01/21/23 at 1902, Anesthesia Intra-op Given 01/21/2023 7:02 PM CDT 4 mg propofol 10 mg/mL infusion (DIPRIVAN) intravenous, Continuous Infusion: Per Instructions PRN, Starting on Heather 01/21/23 at 1738, Anesthesia Intra-op Rate/Dose Change 01/21/2023 6:09 PM CDT 150 mcg/kg/min 73.62 mL/hr Rate/Dose Change 01/21/2023 5:53 PM CDT 125 mcg/kg/min 61. 35 mL/hr Rate/Dose Change 01/21/2023 5:46 PM CDT 150 mcg/kg/min 73. 62 mL/hr propofoL injection (DIPRIVAN) intravenous, As needed, Starting on Heather 01/21/23 at 1746, Anesthesia Intra-op Given 01/21/2023 6:28 PM CDT 40 mg Given 01/21/2023 6:09 PM CDT 40 mg Given 01/21/2023 5:46 PM CDT 40 mg rocuronium injection (ZEMURON) intravenous, As needed, Starting on Heather 01/21/23 at 1739, Anesthesia Intra-op Given 01/21/2023 5:39 PM CDT 10 mg Given 01/21/2023 5:38 PM CDT 10 mg succinylcholine (PF) injection (ANECTINE) intravenous, As needed, Starting on Heather 01/21/23 at 1738, Anesthesia Intra-op Given 01/21/2023 5:38 PM CDT 100 mg documented in this encounter Care Teams Traffic Supervisor Relationship Specialty Start Date End Date None Reported, Pcp PCP - General Family Medicine 01/21/23 documented as of this encounter
--- OUTSIDE RECORDS SUMMARY | 2023-07-28 09:05 | XMS_ITS | Encounter Summary ---
Author Name Unknown Organization [facility] Address [address] [place] [address] Care Team Providers Care Snow Removal Supervisor Name Role Phone None Reported, Pcp Primary Care Provider Unavail able Encounter Details Date Type Department Care Team (Latest Contact Info) Description 06/25/2023 Clinical Communication Department of Otorhinolaryngology in [place], [place] [address] [place] [phone] Reji Alexander Social History Tobacco Use Types Packs/Day Years [...] week 10/28/2022 How often do you attend voodoo or restorationism serv ices? Never 10/28/2022 Do you belong to any clubs o r organizations such as voodoo groups, unions, fraternal or athletic groups, or [...] and heating? Not hard at all 10/28/2022 [facility] of Occupat ional Health - Occupational Stress [...] status Employed but not working due t o furlough 10/28/2022 Education Answer Date Recorded What is the highest level of school you have completed or the highest degree you have received? Some college, no degree 10/28/2022 Sex and Gender Information Value Date Recorded Sex Assigned at Male 10/28/2022 11:01 AM CDT Gender Identity Male 10/28/2022 11:01 AM CDT Sexual Orientation Straight 10/28/2022 11 :01 AM CDT documented as of this encounter Miscellaneous Notes * Telephone Encounter - Reji Alexander - 07/08/2023 1:27 PM CST Emailed Cochlear the info and should be registered as of now. 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 On extremely long hold. Will try again. 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
--- OUTSIDE RECORDS SUMMARY | 2023-07-28 09:06 | XMS_ITS | Encounter Summary ---
Author Name Unknown Organization [facility] Address [address] [place] [address] Care Team Providers Care Human Resources Hr Representative Name Role Phone Unavailable Primary Care Provider Unavailabl e Reason for Visit * Appointment Request (Routine) - Closed Specialty Diagnoses / Procedures Referred By Katelyn baum Referred To Contact Otorhinolaryngology Diagnoses Bone Anchored Hearing Aid (BAHA) Fitting Referral ID Status Reason Start Date Expiration Date Visits Re quested Visits Authorized [id number] Closed 04/15/2022 04/15/2023 2 2 Encounter Details Date Type Department Care Team (Latest Contact Info) Description 10/29/2022 8:00 AM CDT Comprehensive Visit Department of Otorhinolaryngology in [place], [place] [address] [place] [phone] Shnaa Chavez, Ph.D. 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 Never 10/28/2022 Do you belong to any clubs o r organizations such as alevism groups, unions, fraternal or athletic groups, or [...] and heating? Not hard at all 10/28/2022 [facility] Occupat ional Health - Occupational [...] place to sleep or slept in a snf (including now)? No 10/28/2022 Nutrition Answer Date [...] Employed but not working due t kevan odomugh 10/28/2022 Education Answer Date Recorded What is the highest level of school you have completed or the highest degree you have received? Some college, no degree 10/28/2022 Sex and Gender Information Value Date Recorded Sex Assigned at Male 10/28/2022 11:01 AM CDT Gender Identity Male 10/28/2022 11:01 AM CDT Sexual Orientation Straight 10/28/2022 11 :01 AM CDT documented as of this encounter Procedure Notes * Shana Chavez, Ph.D. - 10/29/2022 9:02 AM CDT SUBJECTIVE CHIEF COMPLAINT / REASON FOR VISIT Hearing evaluation in conjunction with bone conduction consultation HISTORY OF PRESENT COMPLAINT Mr. 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 Please see clinical note for more details. OBJECTIVE See Audiological Evaluation Form ASSESSMENT/PLAN ?? Left: Normal hearing sensitivity 0.25-2 kHz with mild to moderate sensorineural hearing loss 3-8kHz ?? Right: Moderately-severe to severe mixed hearing loss 0.25- 8 kHz ?? Speech recognition thresholds in good agreement with tonal averages (15 dB HL in the left ear and 65 dB HL in the right ear) ?? Word recognition is 100% at 60 dB HL in the left ear and 90% at 65 dB HL in the right ear. CARE PLAN ?? Follow-up with ENT as scheduled. ?? Re-evaluate hearing as medically indicated, sooner if concerns or changes arise. documented in this encounter Consult Notes * Shana Chavez, Ph.D. - 10/29/2022 8:00 AM CDT SUBJECTIVE REFERRAL: Nicholas Mena M.D. CHIEF COMPLAINT/REASON FOR VISIT Bone conduction hearing device consultation HISTORY Rashad Kiran is a 66 y.o. male with a history of sensorineural hearing loss in his left ear and mixed hearing loss in his right ear. He had right Cochlear baha attract surgically placed elsewhere 09/01/2016. He had some post-operative skin problems by available medical records which resolved. He reported that he heard better with the device than without it, however, he reported that the device bro ke 04/2022 and he expressed interest in surgical options for new bone conduction device. He did notbring his device with him today. He reported a history of ear infections in childhood with myringotomies but no PE tubes. He stated that he was taken to the OR at approximately age 15 or 16 years for what he understood would be a graft of some sort however, the surgery was aborted as it was determined that it would not help while he was in surgery. OBJECTIVE Hearing test was completed to be sure that current information was available for today's appointments. Please see audiogram dated 10/29/2022. Hearing test results were verbally and visually reviewed withMr. Couture. ASSESSMENT/PLAN Mr. Kiran's communication needs and lifestyle were assessed. Realistic expectations with a bone conduction hearing device were discussed. Mr. Kiran was briefly introduced to the following bone conduction hearing devices: Cochlear Baha 6 Max Attract, Cochlear 6 Max on an abutment and Cochlear Osia and Med El Bonebridge. An overview ofthe history, benefits/limitations, expected life and care of the devices were explained. All questions were answered and Mr. Kiran demonstrated an understanding. Written literature was provided. The following device and accessory were selected: Right Tool Grinder Operator Surface Cochlear Model Osia 2 Accessory TV streamer Mr. Kiran will follow-up with ENT. 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
--- OUTSIDE RECORDS SUMMARY | 2023-07-28 09:06 | XMS_ITS | Clinical Summary ---
Author Name Unknown Organization [facility] Address [place], [place] [address] Care Team Providers Care Double End Production Grinder Name Role Phone Deion Wagner MD Primary Care Provider + Allergies Active Allergy Reactions Criticality Noted Date Comments Penicillins *Unknown 06/05/2021 Medications Medication Sig Dispensed Refills Start Date End Date Status atorvastatin (LIPITOR) 10 mg tablet 0 03/23/2021 Active Butalbital-Acetaminophe n-Caff 50-300-40 mg cap 0 06/02/2021 A ctive butalbitaL-acetaminophe n 50-300 mg tab 0 02/21/2021 Active oxyCODONE (ROXICODONE) 5 mg immediate release tablet 0 05/19/2021 Active oxyCODONE-acetaminophen (PERCOCET) 5-325 mg per tablet 0 05/08/2021 Active pantoprazole (PROTONIX) 40 mg delayed-release tablet 0 04/12/2021 Active traMADoL (ULTRAM) 50 mg tablet 0 05/21/2021 Active acetaminophen/diphenhyd ramine (TYLENOL PM EXTRA STRENGTH ORAL) Take by mouth. 0 Active sennosides/docusate sodium (SENNA S ORAL) Take by mouth. 0 Active CALCIUM CARBONATE ORAL Take by mouth. 0 Active psyllium husk (METAMUCIL ORAL) Take by mouth. 0 Acti ve ofloxacin 0.3 % ophthalmic (OCUFLOX) 0.3 % ophthalmic solution Place 1 Drop into the left eye 4 times daily. 5 mL 0 06/05/2021 Active prednisoLONE acetate 1% ophthalmic (ECONOPRED PLUS, PRED FORTE, OMNIPRED) suspension Place 1 Drop into the left eye 4 times daily. SHAKE WELL 10 mL 0 06/05/2021 Active Social History Tobacco Use Types Packs/Day Years Used Date Smoking Tobacco: Never Smokeless Tobacco: Never Alcohol Use Standard Drinks/Week Comments Yes 1 (1 standard drink = 0.6 oz pur e alcohol) Sex and Gender Information Value Date Recorded Sex Assigned at Not on file Gender Identity Not on file Sexual Orientation Not on file Obstetrics History Last Filed Vital Signs Vital Sign Reading Time Taken Comments Blood Pressure 112/76 06/05/2021 8:20 AM GARMENT MANUFACTURING SUPERVISOR Pulse 68 06/05/2021 8:20 AM GARMENT MANUFACTURING SUPERVISOR Temperature 36.1 ??C (97 ??F) 06/05/2021 6:36 AM GARMENT MANUFACTURING SUPERVISOR Respiratory Rate 16 06/05/2021 8:20 AM GARMENT MANUFACTURING SUPERVISOR Oxygen Saturation 96% 06/05/2021 8:20 AM GARMENT MANUFACTURING SUPERVISOR Inhaled Oxygen Concentration - - Weight 83.2 kg (183 lb 8 oz) 06/05/2021 6:00 AM GARMENT MANUFACTURING SUPERVISOR Height 177.8 cm (5' 10) 06/05/2021 6:00 AM GARMENT MANUFACTURING SUPERVISOR Body Mass Index 26.33 06/05/2021 6:00 AM GARMENT MANUFACTURING SUPERVISOR Plan of Treatment Not on file Advance Directives Latest Code Status on File Code Status Date Activated Date Inactivated Comments Full Code 06/05/2021 6:17 AM 06/05/2021 10:45 AM Question Answer Comments Code Status Discussion: Other Care Teams Double End Production Grinder Relationship Specialty Start Date End Date Deion Wagner MD [address] [place] [address] PCP - General Family Practice 05/14/21
--- OUTSIDE RECORDS SUMMARY | 2023-07-28 09:06 | XMS_ITS | Encounter Summary ---
Author Name Unknown Organization [facility] Address [address] [place] [address] Care Team Providers Care Telegraph Service Rater Name Role Phone Unavailable Primary Care Provider Unavailabl e Reason for Visit * Reason Onset Date Comments Communication 08/05/2022 Cochlear Schedul ing Encounter Details Date Type Department Care Team (Latest Contact Info) Description 08/05/2022 Clinical Communication Department of Otorhinolaryngology in [place], [place] [address] [place] [address] Jessica Garcia Communication (Cochlear Scheduling ) Social History Tobacco Use Types Packs/Day Years Used Date Smoking Tobacco: Never Assessed Nutrition Answer Date Recorded Nutrition: EVOO Fat Source Unknown 04/15 Nutrition: Servings of Fruits/Vegetables per Day Not on file 04/15/2022 Dental Answer Date Recorded Dental: Regular Dentist Unknown 04/15/20 Sex and Gender Information Value Date Recorded Sex Assigned at Male 10/28/2022 11:01 AM CDT Gender Identity Male 10/28/2022 11:01 AM CDT Sexual Orientation Straight 10/28/2022 11 :01 AM CDT documented as of this encounter Plan of Treatment Not on file documented as of this encounter Visit Diagnoses Not on filedocumented in this encounter
--- OUTSIDE RECORDS SUMMARY | 2023-07-28 09:06 | XMS_ITS | Encounter Summary ---
Author Name Unknown Organization [facility] Address [address] [place] [address] Care Team Providers Care Senior Clinical Data Coordinator Name Role Phone None Reported, Pcp Primary Care Provider Unavail able Reason for Visit * Auth/Cert (Routine) Specialty Diagnoses / Procedures Referred By Katelyn t Referred To Contact Diagnoses Loss Hearing Right Loss Hearing Right [H91.91] Procedures VT IMPLTJ OI IMPLT SKL TC KIANA VT AUDITORY OSSEO DEV INT/EXT COMP PLACEMENT BONE ANCHORED HEARING AID,OSIA, proceed as indicated Referral ID Status Reason Start Date Expiration Date Visits Re quested Visits Authorized [id number] 1 1 Encounter Details Date Type Department Care Team (Latest Contact Info) Description 01/21/2023 11:57 AM CDT - 01/21/2023 8:37 PM CDT Hospital Encounter [facility] [address] [place] [address] Jossue Webb M.D. [address] [place] [address] Discharge Disposition: Home or Self Care Social History Tobacco Use Types Packs/Day Years [...] week 10/28/2022 How often do you attend scientologist or jewish serv ices? Never 10/28/2022 Do you belong to any clubs o r organizations such as scientologist groups, unions, fraternal or athletic groups, or [...] and heating? Not hard at all 10/28/[address] [facility] Occupat ional Health - Occupational Stress [...] place to sleep or slept in a longterm (including now)? No 10/28/2022 Nutrition Answer Date [...] AM CDT documented as of this encounter Last Filed Vital Signs Vital Sign Reading [...] Mass Index 25.88 01/21/2023 12:40 PM CDT documented in this encounter Discharge Instructions * Discharge Instructions* Yu Centeno RGuanacoN. - 01/21/2023 7:43 PM CDT Instructions After Sedation or Anesthesia After you have sedation or anesthesia, it is common to have lapses of memory, slowed reaction time and impaired judgment. Do not drive or operate motorized vehicles or equipment for the rest of the day. This is for your safety and the safety of others. Air travel by yourself on the day of your procedure is not advised. For the rest of the day: Rest. Do not return to work or school. Do not take on responsibility for children or anyone who depends on your care. Do not use exercise equipment or take part in rough play or sports. Do not drink alcoholic beverages. Sedation or anesthesia medication also may increase your risk of falling. Use caution and ask for help when you walk or move around. You may want to have someone help you for the rest of the day. You may resume your usual diet when you feel able to do so, unless you are told otherwise. Contact your health care provider if you have: The following side effects longer than 24 hours: Ongoing dizziness. Persistent nausea or repeated vomiting. Signs of infection, which may include: Temperature of 100.4 degrees Fahrenheit (38 degrees Celsius) or higher. Chills. An Increase in swelling, tenderness, or redness at the site. Increased pain or pain not helped by pain medication. A bad-smelling odor from the site New drainage or an increase in drainage coming from the site A change in skin color at the site. This change may be a shade of red, purple or brown, depending on your skin color. documented in this encounter Medications at Time of Discharge Medication Sig Dispensed Refills Start Date End Date acetaminophen (TYLENOL) 500 mg tablet Take 2 tablets (1,000 mg total) by mouth every 6 (six) hours as needed for moderate pain or score 4-6 of 10 or mild pain or score 1-3 of 10. 0 01/21/2023 atorvastatin (LIPITOR) 20 mg tablet Take 20 mg by mouth at bedtime. 0 10/08/2022 butalbital-acetaminoph en-caff (FIORICET) 50-300-40 mg per capsule every 6 (six) hours as needed for migraine. 0 10/17/2022 escitalopram (LEXAPRO) 20 mg tablet Take 20 mg by mouth at bedtime. 0 01/19/2023 esomeprazole (NexIUM) [address] capsule Take 40 mg by mouth every morning before breakfast. 0 10/18/2022 ibuprofen (ADVIL,MOTRIN) 200 mg tablet Take 3 tablets (600 mg total) by mouth every 6 (six) hours as needed for pain. Take with food. 0 01/21/2023 oxyCODONE (ROXICODONE) 5 mg immediate release tabletIndications:Acut e Pain Take 1 tablet (5 mg total) by mouth every 4 (four) hours as needed for severe pain or score 7-10 of 10 Indication: Acute Pain. 5 tablet 0 01/21/2023 polyethylene glycol (MIRALAX) 17 gram/dose oral powder Take 17 g by mouth as needed for constipation. Dissolve each 17 g dose in 240 mL (8 ounces) of beverage. (Uses either Miralax or Metamucil interchangeably.) 0 tamsulosin (FLOMAX) 0.4 mg 24 hr capsule daily. 0 08/07/2022 traZODone (DESYREL) 150 mg tablet Take 150 mg by mouth at bedtime as needed for sleep. Takes trazodone HCL tabs, one 150 mg tablet daily. 0 10/13/2022 venlafaxine XR (EFFEXOR-XR) 150 mg 24 hr capsule Take 150 mg by mouth daily. 0 10/22/2022 cefadroxil (DURICEF) 500 mg capsule Take 1 capsule (500 mg total) by mouth 2 (two) times a day for 7 days. 14 capsule 0 01/21/2023 01/28/2023 acetaminophen (TylenoL) 325 mg capsule Take by mouth daily as needed. 0 02/17/2023 documented as of this encounter Progress Notes * Angelica Zuluaga M.D. - 01/20/2023 5:37 PM CDT Images from the original note were not included. OTORHINOLARYNGOLOGY - HEAD AND NECK SURGERY BRIEFING NOTE Rashad Kiran is a 67 y.o. male who has PMH significant for conductive hearing loss and previous placement of a cochlear attract who we plan on converting to a cochlear osia due to dysfunction of hisold device. Surgical plan: Placement bone anchored hearing aid, osia, removal of cochlear attract RIGHT EAR Past medical history: GERD, Mccain's esophagus, obstructive sleep apnea, hyperlipidemia, migraine,BPH, anxiety Allergies: Penicillins ANESTHESIA - ETT: Regular ET tube taped to left - Fio2: No restrictions - Paralysis: No paralysis - Abx: ancef - Decadron: Antiemetic doses - Pt position: supine - Arm tuck: both arms tucked - Bed position: Turned 180?? - Estimated Time: 90 minutes NURSING - Bolivar: No Bolivar - Patient postop status/disposition: Outpatient - Meds: 1% lidocaine with 100,000 epinephrine - Prep: Betadine prep - Special equipment: Bone anchored hearing aid currie, cochlear osia for implantation - Closure: 3-0 Vicryl, 4-0 Vicryl, 5 0 Monocryl - Other concerns: None - follow-up: Angelica Zuluaga MD Resident Physician Dr. Webb Team [facility] documented in this encounter OR Notes * Op Note - Angelica Zuluaga M.D. - 01/21/2023 6:16 PM CDT Pre-op Diagnosis Loss Hearing Right Post-op Diagnosis Loss Hearing Right A construction administrative assistant actively participated and was necessary for one or more of the following: opening, exposure and visualization during the case, maintaining hemostasis, wound closure resulting in itssafe and expeditious completion. Findings - successful removal of previous cochlear attract device - placement of a new osseointegrated screw more inferiorly based than previous osseointegrated screw - successful placement of OSIA device Complications None Operative Note Narrative Procedure(s): Removal of cochlear attract device, placement of cochlear OSIA on the right side Indication(s): Right sided Conductive hearing loss Operative Procedure: The patient was brought into the operating room identified by name, date, clinic number, and procedure. There transferred to the operative table where a plane of general endotracheal anesthesiawas obtained by our colleagues in Anesthesia. A surgical pause was held identifying the patient by name, date, clinic number, procedure, allergies, medications to be given, and fire risk. Patient was turned 180??. Using a nonsterile template a rough approximation of the device location was outlined on the skin. Due to the high placement of the previous attract device I felt as though the patient would be better suited to a new osseointegrated screw. Methylene blue was used to dontae the site for the osseointegrated screw. Using a 25 gauge needle the skin thickness was measured over where the coil we will sit and was 5 mm in thickness. The patient was then prepped and draped in a sterile fashion. 1% lidocaine with 100,000 epinephrinewas instilled into a planned incision which use a portion of the postauricular incision from the previous implant and extended down a little bit more inferiorly and in a slight L shape. Incision was made with a 15 blade through the skin down to the mastoid. This was also carried onto the previous cochlear attract device. This flap was then elevated posteriorly and over the previous device. This was done in a subperiosteal plane. This revealed the site of the methylene blue for placement of the screw. We first focused our attention at removal of the old device. The cochlear attract device was unscrewed from the osseointegrated screw dissected free from fibrous capsule and removed with a [place]. A new pocket was created for the OSIA device. We then proceeded with placement of a new osseointegrated screw. We first drilled a 3 mm pilot plant operator helper hole. There was some minor bleeding from an emissary vein but there was good bone stock at the deep aspect of the hole. A 4 mm pilot plant operator helper hole was then drilled. Karon drilled a countersink the implants and finally placed a new osseointegrated screw at a speed of 50 ncm which went in well and provided hemostasis to the emissary bleeding. We then fixed the bone bed indicator onto the new screw and this rotated freely 360?? without contacting any tissue. We then brought the new Osia device into the field. The pocket was copiously irrigated with saline and hemostasis achieved with bipolar cautery. The Osia was then fitted onto the osseointegrated screw and hand tightened in place. A torque wrench was then used up to a tightness of 25 Ncm. The device fit well into the pocket. Final hemostasis was achieved. The wound was then closedin anatomical layers with 3-0 Monocryl, 4-0 Monocryl and 5 0 fast. Vaseline and a mastoid dressing were placed. All counts were correct at the end of the case. The patient was turned over to anesthesia for emergence, extubation, and safe transport to the PACU. Angelica Zuluaga M.D. documented in this encounter Plan of Treatment Not on file documented as of this encounter Procedures Procedure Name Priority Date/Time Associated Diagnosis Comments PLACEMENT BONE ANCHORED HEARING AID 01/21/2023 5:14 PM CDT Loss Hearing Right Case Notes NURSE PRACTITIONER HOSPITALIST 1203: TPU 6 documented in this encounter Visit Diagnoses Diagnosis Loss Hearing Right- Primary documented in this encounter Admitting Diagnoses Diagnosis Loss Hearing Right documented in this encounter Administered Medications Inactive Administered Medications - up to 3 most recent administrations Medication Order MAR Action Action Date Dose Rate Site acetaminophen tablet 1,000 mg (TYLENOL) 1,000 mg, oral, Every 6 hours, First dose on Heather 01/21/23 at 2000 Given 01/21/2023 8:31 PM CDT 1,000 mg metoprolol tablet 12.5 mg (LOPRESSOR) 12.5 mg, oral, Once as needed, if patient did not take their last scheduled dose of beta alvino prior to arrival, Starting on Heather 01/21/23 at 1614, For 1 dose, Pre-Op, Do not give if patient does not take scheduled beta blockers, if patient is receiving intravenous vasopressors or inotropes, if heart rate is less than 50 beats per minute, if systolic blood pressure is less than 90 mmHg or if diastolic blood pressure is less than 40 mmHg, or if patient has an allergy to metoprolol. oxyCODONE IR tablet 10 mg (ROXICODONE) 10 mg, oral, Every 4 hours PRN, severe pain or score 7-10 of 10, or pain greater than comfort goal, Starting on Heather 01/21/23 at 1937 oxyCODONE IR tablet 5 mg (ROXICODONE) 5 mg, oral, Every 4 hours PRN, moderate pain or score 4-6 of 10, Starting on Heather 01/21/23 at 1937 sodium chloride 0.9 % injection 10 mL 10 mL, intravenous, As needed, line care, Starting on Heather 01/21/23 at 1614, Pre-Op, Peripheral Intravenous Catheter and Rapid Infusion Catheter, prior to blood sampling, post blood transfusion or post blood sampling sodium chloride 0.9 % injection 3 mL 3 mL, intravenous, As needed, line care, Starting on Heather 01/21/23 at 1614, Pre-Op, Prior to and following infusion and between multiple consecutive infusions: sodium chloride 0.9 % injection sodium chloride 0.9 % injection 3 mL 3 mL, intravenous, Every 12 hours scheduled, First dose on Heather 01/21/23 at 2100, Pre-Op, Peripheral Intravenous Catheter and Rapid Infusion Catheter, when no infusion to maintain patency documented in this encounter Active and Recently Administered Medications Times are shown in CDT. Scheduled Medication Order 01/19/2023 01/20/2023 01/21/2023 acetaminophen tablet 1,000 mg (TYLENOL) 1,000 mg, oral, Every 6 hours, First dose on Heather 01/21/23 at 1999 2030 (Given - Provid er: Yu Centeno R.N.) ceFAZolin injection 2,000 mg (ANCEF) (COMPLETED) 2,000 mg (rounded from 2,045 mg = 25 mg/kg ? 81.8 kg), intravenous, Once, On Heather 01/21/23 at 1745, For 1 dose, Intra-Op, Administer within 1 hour prior to surgical incision If needed, reconstitute vial per package insert instructions. See IVAG for administration guidelines., Drug Monitoring Program: Pharmacist to adjust medication dosing based on indication and drug clearance factors., Indications: Prophylaxis, surgical 1753 (Given - Provid er: Marivel Hoffmann APRN, MARSHALL, D.N.P.) sodium chloride 0.9 % injection 3 mL 3 mL, intravenous, Every 12 hours scheduled, First dose on Heather 01/21/23 at 2100, Pre-Op, Peripheral Intravenous Catheter and Rapid Infusion Catheter, when no infusion to maintain patency Continuous Medication Order 01/19/2023 01/20/2023 01/21/2023 lactated ringers 50 mL/hr, intravenous, Continuous, Starting on Heather 01/21/23 at 1915, PACU & Post-Op 1915 (Due) PRN Medication Order 01/19/2023 01/20/2023 01/21/2023 dexAMETHasone injection 4 mg (DECADRON) 4 mg, intravenous, Once as needed, nausea, vomiting, Starting on Heather 01/21/23 at 1937, For 1 dose, Give only if NOT given during the pre or intraoperative period. If ondansetron ordered, give dexamethasone with first dose of ondansetron. haloperidol lactate injection 1 mg (HALDOL) 1 mg, intravenous, Every 6 hours PRN, nausea, vomiting, Starting on Heather 01/21/23 at 1937, For 48 hours, Total of 3 doses in 24 hour period. RASS must be -2 or higher to administer. Reassess for nausea or vomiting after at least 10 minutes. If nausea or vomiting persists administer next ordered antiemetic medications (order for antiemetic medication administration ondansetron then haloperidol then prochlorperazine) ibuprofen tablet 600 mg (MOTRIN) 600 mg, oral, Every 6 hours PRN, mild pain or score 1-3 of 10, Starting on Heather 01/21/23 at 1937, Take with food or milk if GI disturbances occur with use. lidocaine-EPINEPHrine 1 %-1:100,000 injection (XYLOCAINE W/EPI) (CANCELED) As needed, Starting on Heather 01/21/23 at 1816, Intra-Op 1815 (Given - Provid er: Angelica Zuluaga M.D.) methylene blue 0.5 % (5 mg/mL) injection (CANCELED) As needed, Starting on Heather 01/21/23 at 1807, Intra-Op 180 (Given - Provid er: Angelica Zuluaga M.D. - Comment: infiltration) metoprolol tablet 12.5 mg (LOPRESSOR) 12.5 mg, oral, Once as needed, if patient did not take their last scheduled dose of beta alvino prior to arrival, Starting on Heather 01/21/23 at 1614, For 1 dose, Pre-Op, Do not give if patient does not take scheduled beta blockers, if patient is receiving intravenous vasopressors or inotropes, if heart rate is less than 50 beats per minute, if systolic blood pressure is less than 90 mmHg or if diastolic blood pressure is less than 40 mmHg, or if patient has an allergy to metoprolol. naloxone injection 0.2 mg (NARCAN) 0.2 mg, intravenous, Once as needed, respiratory depression, Starting on Heather 01/21/23 at 1937, For 1 dose, For RASS Score -4 or less, respiratory rate of less than 8 breaths/min. Notify provider/service and rapid response team (if available at institution). ondansetron (PF) injection 4 mg (ZOFRAN) 4 mg, intravenous, Every 6 hours PRN, nausea, vomiting, Starting on Heather 01/21/23 at 1937, For 48 hours, Reassess for nausea or vomiting after at least 10 minutes. If nausea or vomiting persists administer next ordered antiemetic medications (order for antiemetic medication administration ondansetron then haloperidol then prochlorperazine). oxyCODONE IR tablet 10 mg (ROXICODONE)(Linked Group 1) 10 mg, oral, Every 4 hours PRN, severe pain or score 7-10 of 10, or pain greater than comfort goal, Starting on Heather 01/21/23 at 1937 oxyCODONE IR tablet 5 mg (ROXICODONE)(Linked Group 1) 5 mg, oral, Every 4 hours PRN, moderate pain or score 4-6 of 10, Starting on Heather 01/21/23 at 1937 prochlorperazine injection 5 mg (COMPAZINE) 5 mg, intravenous, Every 6 hours PRN, nausea, vomiting, Starting on Heather 01/21/23 at 1937, For 48 hours, RASS must be -2 or higher to administer. Reassess for nausea/vomiting after at least 10 minutes. If nausea or vomiting persists administer next ordered antiemetic medications (order for antiemetic medication administration ondansetron then haloperidol then prochlorperazine) sodium chloride 0.9 % injection 10 mL 10 mL, intravenous, As needed, line care, Starting on Heather 01/21/23 at 1614, Pre-Op, Peripheral Intravenous Catheter and Rapid Infusion Catheter, prior to blood sampling, post blood transfusion or post blood sampling sodium chloride 0.9 % injection 3 mL 3 mL, intravenous, As needed, line care, Starting on Heather 01/21/23 at 1614, Pre-Op, Prior to and following infusion and between multiple consecutive infusions: sodium chloride 0.9 % injection Linked Groups Order Group 1: oxyCODONE IR tablet 5 mg (ROXICODONE)Jump to med 5 mg, oral, Every 4 hours PRN, moderate pain or score 4-6 of 10, Starting on Heather 01/21/23 at 1937 Or oxyCODONE IR tablet 10 mg (ROXICODONE)Jump to med 10 mg, oral, Every 4 hours PRN, severe pain or score 7-10 of 10, or pain greater than comfort goal, Starting on Heather 01/21/23 at 1937 documented in this encounter Care Teams Senior Clinical Data Coordinator Relationship Specialty Start Date End Date None Reported, Pcp PCP - General Family Medicine 01/21/23 documented as of this encounter
--- OUTSIDE RECORDS SUMMARY | 2023-07-28 09:06 | XMS_ITS | Encounter Summary ---
Author Name Unknown Organization [facility] Address [address] [place] [address] Care Team Providers Care Safety And Health Manager Name Role Phone Unavailable Primary Care Provider Unavailabl e Reason for Visit * Appointment Request (Routine) - Closed Specialty Diagnoses / Procedures Referred By Katelyn t Referred To Contact Otorhinolaryngology Diagnoses Bone Anchored Hearing Aid (BAHA) Fitting Referral ID Status Reason Start Date Expiration Date Visits Re quested Visits Authorized [id number] Closed 04/15/2022 04/15/2023 2 2 Encounter Details Date Type Department Care Team (Latest Contact Info) Description 10/29/2022 9:30 AM CDT Comprehensive Visit Department of Otorhinolaryngology in [place], [place] [address] [place] [address] Nicholas Mena M.D. Loss Hearing Right (Primary Dx) Social History Tobacco Use Types [...] week 10/28/2022 How often do you attend methodist or anabaptist serv ices? Never 10/28/2022 Do you belong to any clubs o r organizations such as methodist groups, unions, fraternal or athletic groups, or [...] and heating? Not hard at all 10/28/2022 [facility] [place] [facility] Occupat ional [facility] - Occupational Stress [...] AM CDT documented as of this encounter Consult Notes * Nicholas Mena M.D. - 10/29/2022 9:30 AM CDT Images from the original note were not included. SUBJECTIVE CHIEF COMPLAINT / REASON FOR VISIT Rashad Kiran is a 66 y.o. male who presents for evaluation of hearing loss HISTORY OF PRESENT ILLNESS Mr. Kiran is a very pleasant 66 y.o. who presents to clinic. The patient had a cochlear attract placed on the right side 5 years ago. 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 He reports having a history of chronic ear disease as a child and at age15 he was scheduled for a surgery to repair this but they had to abort. It appears that he had a canal wall down mastoidectomy and has known right tympanic membrane perforation. His air bone gap is about 50 decibel on the right side. He was doing well with the cochlear attract but the external processor is broken and he would like to upgrade to an OSIA as he had some issues with the attract. No left hearing concerns. Overall the right ear he has been relatively dry with very few infections. Social History Tobacco Use Smoking status: Never Smokeless tobacco: Never Vaping Use Vaping Use: never used ALLERGIES: Allergies Allergen Reactions Penicillins Other (see comments), Hives, Itching and Rash CURRENT MEDICATIONS: Current Outpatient Medications: acetaminophen (TylenoL) 325 mg capsule, Take by mouth., Disp: , Rfl: atorvastatin (LIPITOR) 20 mg tablet, , Disp: , Rfl: guzabfptrr-prajmnbvzggtb-btry (FIORICET) 50-300-40 mg per capsule, , Disp: , Rfl: esomeprazole (NexIUM) [address] capsule, , Disp: , Rfl: polyethylene glycol (MIRALAX) 17 gram/dose oral powder, Take 17 g by mouth as needed for constipation. Dissolve each 17 g dose in 240 mL (8 ounces) of beverage., Disp: , Rfl: tamsulosin (FLOMAX) 0.4 mg 24 hr capsule, daily., Disp: , Rfl: traZODone (DESYREL) 150 mg tablet, daily., Disp: , Rfl: venlafaxine XR (EFFEXOR-XR) 150 mg 24 hr capsule, daily., Disp: , Rfl: PAST MEDICAL HISTORY: No past medical history on file. SURGICAL HISTORY: No past surgical history on file. SOCIAL HISTORY: Social History Socioeconomic History Marital status: Spouse name: Not on file Number of children: Not on file Years of education: Not on file Highest education level: Some college, no degree Occupational History Not on file Tobacco Use Smoking status: Never Smokeless tobacco: Never Vaping Use Vaping Use: never used Substance and Sexual Activity Alcohol use: Not on file Drug use: Not on file Sexual activity: Not on file Other Topics Concern Not on file Social History Narrative Not on file Social Determinants of Health Financial Resource Strain: Low Risk (10/28/2022) Overall Financial Resource Strain (CARDIA) Difficulty of Paying Living Expenses: Not hard at all Food Insecurity: No Food Insecurity (10/28/2022) Hunger Vital Sign Worried About Running Out of Food in the Last Year: Never true Ran Out of Food in the Last Year: Never true Transportation Needs: No Transportation Needs (10/28/2022) PRAPARE - Transportation Lack of Transportation (Medical): No Lack of Transportation (Non-Medical): No Physical Activity: Inactive (10/28/2022) Exercise Vital Sign Days of Exercise per Week: 0 days Minutes of Exercise per Session: 0 min Stress: Stress Concern Present (10/28/2022) [facility] [place] [facility] - Occupational Stress Questionnaire Feeling of Stress : Very much Social Connections: Moderately Isolated (10/28/2022) Social Connection and Isolation Panel [NHANES] Frequency of Communication with Friends and Family: Twice a week Frequency of Social Gatherings with Friends and Family: Once a week Attends Orthodoxy Services: Never Active Member of Clubs or Organizations: No Attends Club or Organization Meetings: Never Marital Status: Intimate Partner Violence: Not At Risk (10/28/2022) Humiliation, Afraid, Rape, and Kick questionnaire Fear of Current or Ex-Partner: No Emotionally Abused: No Physically Abused: No Sexually Abused: No Housing Stability: Low Risk (10/28/2022) Housing Stability Vital Sign Unable to Pay for Housing in the Last Year: No Number of Places Lived in the Last Year: 1 Unstable Housing in the Last Year: No FAMILY HISTORY: No family history on file. REVIEW OF SYSTEMS 10 point review of systems reviewed with patient and noncontributory other than in HPI. OBJECTIVE PHYSICAL EXAM General: Well appearing in no acute distress. Head: Normocephalic, atraumatic. Eyes: Extraocular eye movements intact bilaterally. Ears: Bilateral external ears without masses or lesions. Bilateral ears examined under otomicroscopy. Right Ear: Externally normal in appearance. Canal wall down mastoidectomy with meatal plasty. 30% perforation. No drainage. The ears dry. No evidence of cholesteatoma. Left Ear: Externally normal in appearance. External auditory canal patent and healthy. Tympanic membrane intact without perforation, retraction, bulging, or evidence of effusion/infection. Respiratory: Unlabored respirations. Psych: Appropriate mood and affect. DIAGNOSTICS: ASSESSMENT / PLAN #1. Hearing loss It was a pleasure to meet Mr. Kiran today. Patient has previously done well with a bone anchored hearing aid. He currently has the Cochlear Attract but due to this device being broken he would liketo consider converting this to a cochlear OSIA. He is a candidate for bone anchored hearing aid given his large air bone gap on his audiogram today. Discussed the surgical details. Discussed the likelihood that I would have to put a new osteo integrated screw to better accommodate positioning and fit of the cochlear osia. Discussed incision planning as well as postoperative recovery. We will submit for prior written authorization and contact the patient to schedule. All questions answered to the best of my ability. Patient reports understanding and agreement with this treatment plan. TT: 45 min documented in this encounter Plan of Treatment Not on file documented as of this encounter Visit Diagnoses Diagnosis Loss Hearing Right- Primary documented in this encounter
--- OUTSIDE RECORDS SUMMARY | 2023-07-28 09:06 | XMS_ITS | Encounter Summary ---
Author Name Unknown Organization [facility] Address [address] [place] [address] Care Team Providers Care Registered Massage Therapist Name Role Phone None Reported, Pcp Primary Care Provider Unavail able Reason for Visit * Auth/Cert (Routine) Specialty Diagnoses / Procedures Referred By Contangelica t Referred To Contact Diagnoses Loss Hearing Right Loss Hearing Right [H91.91] Procedures CT IMPLTJ OI IMPLT SKL TC KIANA CT AUDITORY OSSEO DEV INT/EXT COMP PLACEMENT BONE ANCHORED HEARING AID,OSIA, proceed as indicated Referral ID Status Reason Start Date Expiration Date Visits Re quested Visits Authorized [id number] 1 1 Encounter Details Date Type Department Care Team (Late st Contact Info) Description 01/21/2023 2:47 PM CDT - 01/21/2023 4:49 PM CDT Surgery [facility] [address] [place] [address] Jossue Webb M.D. [address] [place] [address] PLACEMENT BONE ANCHORED HEARING AID, OSIA Social History Tobacco Use Types Packs/Day Years [...] week 10/28/2022 How often do you attend shinto or catholic serv ices? Never 10/28/2022 Do you belong to any clubs o r organizations such as shinto groups, unions, fraternal or athletic groups, or [...] and heating? Not hard at all 10/28/2022 [facility] of Occupat ional Health - Occupational Stress [...] Sign Reading Time Taken Comments Blood Pressure 124/88 01/21/2023 12:40 PM CDT Pulse 62 01/21/2023 12:40 PM CDT Temperature 36.8 ??C (98.2 ??F) 01/21/2023 12:40 PM C DT Respiratory Rate 18 01/21/2023 12:40 PM CDT Oxygen Saturation 96% 01/21/2023 12:40 PM CDT Inhaled Oxygen Concentration - - Weight 81.8 kg (180 lb 5.4 oz) 01/21/2023 12:40 PM CDT Height 177.8 cm (5' 10) 01/21/2023 12:40 PM CDT Body Mass Index 25.88 01/21/2023 12:40 PM CDT documented in this encounter Discharge Instructions * Discharge Instructions* Yu Centeno, RGuanacoN. - 01/21/2023 7:43 PM CDT Instructions [...] Zuluaga MD Resident Physician Dr. Webb Team [facility] documented in this encounter OR Notes * Op Note - Angelica Zuluaga M.D. - 01/21/2023 6:16 PM CDT Pre-op Diagnosis Loss Hearing Right Post-op Diagnosis Loss Hearing Right A financial services assistant actively participated and was necessary for [...] from fibrous capsule and removed with a [place]. A new pocket was created for the OSIA device. We then proceeded with placement of a new osseointegrated screw. We first drilled a 3 mm airplane patrol pilot hole. There was some minor bleeding from an emissary vein but there was good bone stock at the deep aspect of the hole. A 4 mm airplane patrol pilot hole was then drilled. Karon drilled a [...] PM CDT Loss Hearing Right Case Notes LIBRARY TECHNOLOGY INSTRUCTOR 1203: TPU 6 documented in this encounter Visit Diagnoses Diagnosis Loss Hearing Right- Primary Loss Hearing Right documented in this encounter Admitting Diagnoses Diagnosis Loss Hearing Right documented in this encounter Administered Medications Inactive Administered Medications - up to 3 most recent administrations Medication Order MAR Action Action Date Dose Rate Site acetaminophen tablet 1,000 mg (TYLENOL) 1,000 mg, oral, Every 6 hours, First dose on Wed01/21/23 at 2000 Given 01/21/2023 8:31 PM CDT 1,000 mg lidocaine-EPINEPHrine 1 %-1:100,000 injection (XYLOCAINE W/EPI) As needed, Starting on Wed01/21/23 at 1816, Intra-Op Given 01/21/2023 6:16 PM CDT 2.5 mL Right Ear methylene blue 0.5 % (5 mg/mL) injection As needed, Starting on Wed01/21/23 at 1807, Intra-Op Given 01/21/2023 6:07 PM CDT 0.1 mL Right Ear metoprolol tablet 12.5 mg (LOPRESSOR) 12.5 mg, [...] Starting on Heather 01/21/23 at 1816, Intra-Op 1816 (Given - Provid er: Angelica Zuluaga M.D.) methylene blue 0.5 % (5 mg/mL) injection (CANCELED) As needed, Starting on Heather 01/21/23 at 1807, Intra-Op 1807 (Given - Provid er: Angelica Zuluaga M.D. [...] 1935 documented in this encounter Care Teams Registered Massage Therapist Relationship Specialty Start Date End Date None Reported, Pcp PCP - General Family Medicine 01/21/23 documented as of this encounter
--- OUTSIDE RECORDS SUMMARY | 2023-07-28 09:06 | XMS_ITS | Encounter Summary ---
Author Name Unknown Organization [facility] Address [address] [place] [address] Care Team Providers Care Packing Shed Supervisor Name Role Phone Unavailable Primary Care Provider Unavailabl e Encounter Details Date Type Department Care Team (Latest Contact Info) Description 12/31/2022 Clinical Communication Department of Otorhinolaryngology in [place], [place] [address] [place] [address] Haley Dupont Social History Tobacco Use Types Packs/Day Years [...] week 10/28/2022 How often do you attend zoroastrian or alevism serv ices? Never 10/28/2022 Do you belong to any clubs o r organizations such as zoroastrian groups, unions, fraternal or athletic groups, or [...] and heating? Not hard at all 10/28/2022 [facility] Occupat ional Health - Occupational Stress [...] Employed but not working due t kevan shanthieveretteugh 10/28/2022 Education Answer Date Recorded What is [...] encounter Miscellaneous Notes * Telephone Encounter - Angelica Zuluaga M.D. - 12/31/2022 12:58 PM CDT That sounds great! Thank you. Angelica documented in this encounter Plan of Treatment Not on file documented as of this encounter Visit Diagnoses Not on filedocumented in this encounter
--- OUTSIDE RECORDS SUMMARY | 2023-07-28 09:06 | XMS_ITS | Encounter Summary ---
Author Name Unknown Organization [facility] Address [address] [place] [address] Care Team Providers Care Fat Pressroom Worker Name Role Phone Unavailable Primary Care Provider Unavailabl e Encounter Details Date Type Department Care Team (Latest Contact Info) Description 12/09/2022 Clinical Communication Department of Otorhinolaryngology in [place], [place] [address] [place] [phone] iNcholas Mena M.D. Social History Tobacco Use Types Packs/Day Years [...] week 10/28/2022 How often do you attend nondenominational or sabianist serv ices? Never 10/28/2022 Do you belong to any clubs o r organizations such as nondenominational groups, unions, fraternal or athletic groups, or [...] and heating? Not hard at all 10/28/2022 [facility] of Occupat ional Health - Occupational [...] place to sleep or slept in a fpc (including now)? No 10/28/2022 Nutrition Answer Date [...] Employed but not working due t o shanthilough 10/28/2022 Education Answer Date Recorded What is [...] encounter Miscellaneous Notes * Telephone Encounter - Leni Alcazar - 12/29/2022 9:14 AM CDT Surgical checklist mailed * Telephone Encounter - Angelica Zuluaga M.D. - 12/17/2022 12:44 PM CDT I spoke to the patient on the phone today. As reminder this gentleman has a history of previous cochlear attract bone anchored hearing aid implant that is no longer functioning appropriately and he is looking to upgrade to an OSIA. He is interested in pursuing surgery and I discussed possible surgical dates with him. He is interested in January 21 as a surgical date. I have tentatively listed him for this date. I will reach out to Dr. Webb to potentially Co-list this case with. I told the patient I would confirm this date with him once I have heard back. I also offered to see him in clinic on the day before this OR date on January 20 to be in person and discuss surgery since I have not formally met him and he will think about this and let me know. All additional questions were addressed. * Telephone Encounter - Angelica Zuluaga M.D. - 12/17/2022 8:49 AM CDT Awesome I will call him back later today. Thank you Angelica * Telephone Encounter - Angelica Zuluaga M.D. - 12/10/2022 6:10 PM CDT I tried to call the patient but was not able to get a hold of him. I would be happy to discuss surgical dates with him in January on a day where both Dr. Webb and I are operating. I will try to call himback again another day. * Telephone Encounter - Luna Gonzalez - 12/09/2022 9:51 AM CDT Mr. Kiran called this morning, he said that he was returning your call...from a message you left earlier this week. He would like to move forward with scheduling a surgery date as soon as possible. Please call him back and if you should get his voicemail, could you leave date options? I can also call him back with dates if you'd like. I know you are running out of time....and may need to discuss an alternate surgeon. Please let me know if I can help. Luna Estrella documented in this encounter Plan of Treatment Not on file documented as of this encounter Visit Diagnoses Not on filedocumented in this encounter
--- OUTSIDE RECORDS SUMMARY | 2023-07-28 09:06 | XMS_ITS | Referral Summary ---
Author Name Unknown Organization [facility] Address [address] [place] [address]. [place] [address] Care Team Providers Care Student Nurse Name Role Phone No Ref-Primary, Physician Primary Care Provider Allergies No known active allergies Social History Tobacco Use Types Packs/Day Years Used Date Smoking Tobacco: Never Assessed Adolescent Education Answer Date Record ed Getting School Help Needed Not on file 03/27 Sex and Gender Information Value Date Recorded Sex Assigned at Not on file Gender Identity Not on file Sexual Orientation Not on file Plan of Treatment Not on file Care Teams Student Nurse Relationship Specialty Start Date End Date No Ref-Primary, Physician PCP - General 06/19/20
--- OUTSIDE RECORDS SUMMARY | 2023-07-28 09:06 | XMS_ITS | Clinical Summary ---
Author Name Unknown Organization [facility] Address [address] [place] [address]. [place] [address] Care Team Providers Care Fire Technician Name Role Phone No Ref-Primary, Physician Primary [...] Orientation Not on file Plan of Treatment Health Maintenance Due Date Last Done Comments ADVANCE CARE PLANNING 1955 ANNUAL REVIEW OF HM ORDERS 1957 CT COLONOGRAPHY 1957 FIT 1957 FLEX SIG 1957 sDNA (Cologuard) 1957 COVID-19 Vaccine (#1) 06/22/1958 COLONOSCOPY 12/22/1967 COLORECTAL CANCER SCREENING 12/22/1967 HIV SCREENING 1972 HEPATITIS C SCREENING 12/22/1975 DTAP/TDAP/TD IMMUNIZATION (1 - Tdap) 1982 LIPID 1992 RSV VACCINE ( & 60+) (1 - 1-dose 60+ series) 2017 PHQ-2 (once per calendar year) 2022 AORTIC ANEURYSM SCREENING (SYSTEM ASSIGNED) 2022 FALL RISK ASSESSMENT 2022 MEDICARE ANNUAL WELLNESS VISIT 2022 Pneumococcal Vaccine: 65+ Years (1 of 1 - PCV) 2022 INFLUENZA VACCINE (#1) 2023 , 03/21/2019, 05/11/2018, Additional history exists ZOSTER IMMUNIZATION Completed 03/13/2020, 0 HPV IMMUNIZATION Aged Out No longer e ligible based on patient's age to complete this topic IPV IMMUNIZATION Aged Out No longer e ligible based on patient's age to complete this topic MENINGITIS IMMUNIZATION Aged Out No l onger eligible based on patient's age to complete this topic RSV MONOCLONAL ANTIBODY Aged Out No l onger eligible based on patient's age to complete this topic Care Teams Fire Technician Relationship Specialty Start Date End Date No Ref-Primary, Physician PCP - General 06/19/20
--- OUTSIDE RECORDS SUMMARY | 2023-07-28 09:06 | XMS_ITS | Encounter Summary ---
Author Name Unknown Organization [facility] Address [address] [place] [address] Care Team Providers Care Recruitment Internship Name Role Phone Unavailable Primary Care Provider Unavailabl e Reason for Visit * Reason Onset Date Comments Pre-visit Intake 10/28/2022 Encounter Details Date Type Department Care Team (Latest Contact Info) Description 10/28/2022 1:45 PM CDT Clinical Communication Virtual Review in [place], [place] [address] [place], [place] [phone] Pre-visit Intake Social History Tobacco Use Types Packs/Day Years Used Date Smoking Tobacco: Never Smokeless Tobacco: Never Tobacco Cessation:Counseling Given: Not Answered Humiliation, Afraid, Rape, and Kick questionnair e [...] week 10/28/2022 How often do you attend jain or mosque serv ices? Never 10/28/2022 Do you belong to any clubs o r organizations such as jain groups, unions, fraternal or athletic groups, or [...] and heating? Not hard at all 10/28/2022 [facility] of Occupat ional Health - Occupational [...] place to sleep or slept in a penitentiary (including now)? No 10/28/2022 Nutrition Answer Date [...]
--- NOTE | 2023-07-28 09:10 | SUR.PREOP ---
The eye drops brought by the patient (Ketorolac, Oflaxacin and Prednisolone) are examined and I have determined they are labeled by the patient's pharmacy for this patient as prescribed by the surgeon. The bottles are intact, recently obtained and appear to be correct.
[2023-07-28 09:14] VITALS: BP 105/76; PULSE 53; RESP 18; TEMP 36.3; O2SAT 96; BMI 26.9
[2023-07-28] MEDS: SODIUM CHLORIDE 0.9 % (FLUSH) 10 ML SYRINGE IVF (09:26)
[2023-07-28] MEDS: TETRACAINE 0.5% OPHTH 2 DROP EYE-LEFT (09:54)
[2023-07-28] MEDS: BALANCED SALT IRRIG SOLN 15 ML EYE-LEFT (09:56)
--- NOTE | 2023-07-28 10:29 | W.ANESCHARGE ---
Anesthesia Charges Start Date/Time Anesthesia Start Date: 07/28/23 Anesthesia Start Time: 09:49 Stop Date/Time Anesthesia Stop Date: 07/28/23 Anesthesia Stop Time: 10:31
[2023-07-28 10:34] VITALS: BP 106/73; PULSE 56; RESP 16; TEMP 36.6; O2SAT 94
--- NOTE | 2023-07-28 10:38 | P.OPTPRC_ITS ---
Procedure Note Date of procedure: 07/28/23 Will [facility] bill your pro fee for this procedure?: Yes Procedure Description: SURGEON: Dasha Smith MD PREOPERATIVE DIAGNOSIS: 1. Nuclear sclerotic cataract, right eye. 2. Miosis, right eye. POSTOPERATIVE DIAGNOSIS: 1. Nuclear sclerotic cataract, right eye. 2. Miosis, right eye. NAME OF OPERATION: Phacoemulsification of cataract with posterior chamber intraocular lens implantation in the right eye with pupilloplasty. ANESTHESIA: Topical. ESTIMATED BLOOD LOSS: Less than 2 cc. COMPLICATIONS: None. PATHOLOGY SPECIMEN: None. INDICATIONS: See consult note for details. The risks, benefits and alternatives of the procedure were explained to the patient, who elected to proceed and signed informed consent to do so. PROCEDURE: The patient was brought to the pre-holding area where the right eye was identified as the operative eye. I placed my initials above this eye. The patient received eye drops consisting of 0.5% tetracaine, 1% tropicamide, 10% phenylephrine, and 0.5% ketorolac. The patient was then brought to the operating room where the right eye was again identified as the operative eye. The eye was prepped with Betadine and draped in the usual sterile ophthalmic fashion. A #15 super-sharp blade was used to create a paracentesis site. 1% non-preserved intracameral lidocaine was injected into the anterior chamber. Endocoat was injected into the anterior chamber. A 2.4 mm keratome was used to create a three-plane self-sealing incision 1 mm anterior to the temporal limbus. A #15 super-sharp blade was used to create four additional paracentesis sites. Four Grieshaber iris hooks were placed in order to stretch the iris. A cystotome was used to create an anterior capsular leaflet. The Utrata forceps were used to extend this to form a continuous curvilinear capsulorrhexis. Hydrodissection was performed. The cataract was removed with phacoemulsification using the [id number] technique. The irrigation and aspiration tip was used to remove the remaining cortex. Healon was injected into the capsular bag. An ARIAN [id number] intraocular lens of 23.5 diopters was injected into the capsular bag. The four Grieshaber iris hooks were removed. The irrigation and aspiration tip was used to remove the remaining viscoelastic. Miostat was injected into the anterior chamber. Balanced salt solution on a cannula was used to hydrate the wound, and the wound was found to be watertight. The pupil was noted to be round. DISPOSITION: The patient was taken to the recovery room and discharged to home in stable condition. The patient was instructed to call me or go to the emergency department with any sudden change, including dramatic loss of vision, severe pain in the eye or eyebrow region, nausea, or vomiting. The patient will follow up in the clinic tomorrow morning.
--- NOTE | 2023-07-28 11:32 | W.ANESCHARGE ---
Anesthesia Charges Start Date/Time Anesthesia Start Date: 07/28/23 Anesthesia Start Time: 09:49 Stop Date/Time Anesthesia Stop Date: 07/28/23 Anesthesia Stop Time: 10:31
== END 2023-07-28 10:50 | disposition home or self-care (01) ==
LOC: OR 09:01
PROVIDERS: PCP Family Medicine; Visit Provider Ophthalmology
PROC: (CPT 66982; principal; 2023-07-28 09:00)
DX: H25.11 Age-related nuclear cataract, right eye (principal); H57.03 Miosis
CPT/HCPCS: 66982; 00142; A9270; J2250; J2405; J3010; V2632

== ENCOUNTER 2024-01-18 15:34 | Outpatient (CLI) | payer MEDICARE, OTHER, SELFPAY ==
--- OUTSIDE RECORDS SUMMARY | 2024-01-18 15:36 | XMS_ITS | Referral Summary ---
Author Organization [facility] Address [address] [place] [address] Care Team Providers Care Digital Media Producer Name Role Phone None Reported, Pcp Primary Care Provider Unavail able Source Comments Patient records contain information from all sites at [facility]. For routine questions regarding patient records, call [phone] during business hours, M-F 8:00 AM - 5:00 PM Central Time. Record requests for emergency care only can be directed to [phone] at any time.[facility] Allergies Active Allergy Reactions Criticality Noted Date Comments Penicillins Other (see comments) ,Hives (Reselect Reaction),Itching,Rash 07/05/1971 Medications Medication Sig Dispensed Refills Start Date End Date Status atorvastatin (LIPITOR) 20 mg tablet Take 20 mg by mouth at bedtime. 10/08/2022 Active butalbital-acetamin ophen-caff (FIORICET) 50-300-40 mg per capsule every 6 (six) hours as needed for migraine. 10/17/2022 Active esomeprazole (NexIUM) [address] capsule Take 40 mg by mouth every morning before breakfast. 10/18/2022 Active tamsulosin (FLOMAX) 0.4 mg 24 hr capsule daily. 08/07/2022 Active traZODone (DESYREL) 150 mg tablet Take 150 mg by mouth at bedtime as needed for sleep. Takes trazodone HCL tabs, one 150 mg tablet daily. 10/13/2022 Active venlafaxine XR (EFFEXOR-XR) 150 mg 24 hr capsule Take 150 mg by mouth daily. 10/22/2022 Active polyethylene glycol (MIRALAX) 17 gram/dose oral powder Take 17 g by mouth as needed for constipation. Dissolve each 17 g dose in 240 mL (8 ounces) of beverage. (Uses either Miralax or Metamucil interchangeably.) Active escitalopram (LEXAPRO) 20 mg tablet Take 20 mg by mouth at bedtime. 01/19/2023 Active oxyCODONE (ROXICODONE) 5 mg immediate release tabletIndications:A cute Pain Take 1 tablet (5 mg total) by mouth every 4 (four) hours as needed for severe pain or score 7-10 of 10 Indication: Acute Pain. 5 tablet 01/21/2023 Active acetaminophen (TYLENOL) 500 mg tablet Take 2 tablets (1,000 mg total) by mouth every 6 (six) hours as needed for moderate pain or score 4-6 of 10 or mild pain or score 1-3 of 10. 01/21/2023 Active Additional Information Patient taking differently:1,000 [...] as needed for pain. Take with food. 01/21/2023 Active propranoloL (INDERAL) 10 mg tablet Take 10 mg by mouth 2 (two) times a day. Takes one 10 mg tablet twice daily, total of 20 mg. 02/16/2023 Active aspirin-acetaminoph en-caffeine (EXCEDRIN MIGRAINE) 250-250-65 mg per tablet Take 1 tablet by mouth every 6 (six) hours as needed for headaches (Migraines as needed.). Active Active Problems Problem Noted Date Diagnosed [...] week 10/28/2022 How often do you attend uatsdin or christianity serv ices? Never 10/28/2022 Do you belong to any clubs o r organizations such as uatsdin groups, unions, fraternal or athletic groups, or [...] heating? Not hard at all 10/28/2022 [facility] of Occupat ional Health - Occupational Stress [...] place to sleep or slept in a half-way (including now)? No 10/28/2022 Nutrition Answer Date [...] 01/21/2023 12:40 PM CDT Plan of Treatment Upcoming Encounters Date Type Department Care Team (Late st Contact Info) Description 02/16/2024 3:00 PM CDT Diagnostic Department of Otorhinolaryngology in [place], [place] [address] [place] [address] Emory White Au.D., C.C.C.-A [address] [place] [address] Medical Devices Implanted Type Area Transportation Engineer Device Identifier Shelf Expiration Date Model / Serial / Lot Abtmnt Hd Ci Baha Fxtr Bi300 4 - [id number] Implanted:Qty: 1 on 07/05/2016 at [facility] Explanted: 023 (Quantity not on file) BAHA Device Right: Ear Cochlear Limited 06/02/2027 [id number] / / [id number] Description:Baha device impl anted approximately [address] a Dr. Webb, unknown entry. Explanted 01/21/2023. Proc Hd Ci Osia - [id number] - [id number] Implanted:Qty: 1 on 01/21/2023 by Jossue Webb M.D. at [facility] Cochlear Implant Right: Ear Cochlear Limited 11/29/2024 [id number] / [id number] / Osia 2 Sound Processor Implanted:Qty: 1 on 01/21/2023 by Jossue Webb M.D. at [facility] Cochlear Implant Right: Ear Cochlear Limited [id number] / / Explanted Type Area Transportation Engineer Device Identifier Shelf Expiration Date Model / Serial / Lot Cochlear Implant Implanted:Angelica Domniguez M.D. (Quantity not on file) Cochlear Implant Right: Ear Advance Directives For more information, please contact: [phone] * Full Code (Latest Code Status on File) Date Activated Date Inactivated Comments 01/21/2023 7:38 PM 01/21/2023 10:42 PM Question Answer Comments Full Code: Not Discussed Due to: Patient does not have the [facility] Care Teams Digital Media Producer Relationship Specialty Start Date End Date None Reported, Pcp PCP - General Family Medicine 01/21/23
--- OUTSIDE RECORDS SUMMARY | 2024-01-18 15:36 | XMS_ITS | Clinical Summary ---
Author Organization [facility] Address [address] [place] [address] Care Team Providers Care Vegetable Handler Name Role Phone None Reported, Pcp Primary Care Provider Unavail able Source Comments Patient records contain information from all sites at [facility]. For routine questions regarding patient records, call [phone] during business hours, M-F 8:00 AM - 5:00 PM Central Time. Record requests for emergency care only can be directed to [phone] at any time.[facility] Allergies Active Allergy Reactions Criticality Noted [...] week 10/28/2022 How often do you attend zoroastrianism or taoism serv ices? Never 10/28/2022 Do you belong to any clubs o r organizations such as zoroastrianism groups, unions, fraternal or athletic groups, or [...] and heating? Not hard at all 10/28/2022 [facility] of Occupat ional Health - Occupational Stress [...] PM CDT Diagnostic Department of Otorhinolaryngology in [place], [place] [address] [place] [address] Emory White Au.D., C.C.C.-A [address] [place] [address] Health Maintenance Due Date Last Done Comments CT Colonography 1957 Cologuard 1957 Colonoscopy 1957 Colorectal Cancer Screening 1957 FIT 1957 Fasting Glucose for Diabetes Screening 1957 Hepatitis C Screening 1957 Visit: Annual, age 65+ (or Medicare and <65) 1957 Visit: Medicare Annual Wellness 1957 Depression Screening (Annual PHQ-2) 07/05/2023 Fall Risk Screen (Annual) 07/05/2023 COVID-19 Vaccine (7 - 2022-2 4 season) 2023 04/01/2023, 04/21/2022, 11/17/2021, Additional history exists Influenza Vaccine (#1) 2024 3, 04/21/2022, 03/29/2021, Additional history exists DTaP,Tdap,and Td Vaccines (2 - Td or Tdap) 05/05/2031 05/05/2021 Zoster Vaccines Completed 03/13/2020, 09/16/2019 Pneumococcal vaccine (65+ years) Completed 01/19/20 23 Medical Devices Implanted Type Area Finance Lecturer Device Identifier Shelf Expiration Date Model / Serial / Lot Abtmnt Hd Ci Baha Fxtr Bi300 4 - [id number] Implanted:Qty: 1 on 07/05/2016 at [facility] Explanted: 023 (Quantity not on file) BAHA Device Right: Ear Cochlear Limited 06/02/2027 [id number] / / [id number] Description:Baha device impl anted approximately [address] a Dr. Webb, unknown entry. Explanted 01/21/2023. Proc Hd Ci Osia - [id number] - [id number] Implanted:Qty: 1 on 01/21/2023 by Jossue Webb M.D. at [facility] Cochlear Implant Right: Ear Cochlear Limited 11/29/2024 [id number] / [id number] / Osia 2 Sound Processor Implanted:Qty: 1 on 01/21/2023 by Jossue Webb M.D. at [facility] Cochlear Implant Right: Ear Cochlear Limited [id number] / / Explanted Type Area Finance Lecturer Device Identifier Shelf Expiration Date Model / Serial / Lot Cochlear Implant Implanted:Angelica Dominguez M.D. (Quantity not on file) Cochlear Implant Right: Ear Advance Directives For more information, please contact: [phone] * Full Code (Latest Code Status on File) Date Activated Date Inactivated Comments 01/21/2023 7:38 PM 01/21/2023 10:42 PM Question Answer Comments Full Code: Not Discussed Due to: Patient does not have the [facility] Care Teams Vegetable Handler Relationship Specialty Start Date End Date None Reported, Pcp PCP - General Family Medicine 01/21/23
--- OUTSIDE RECORDS SUMMARY | 2024-01-18 15:37 | XMS_ITS ---
Author Organization [facility] Address [address] [place] [address] Care Team Providers Care Electronic Publisher Name Role Phone Unavailable Unavailable Unavailable Surgery Details Not on file Complications Check Surgery Details section. Procedure Estimated Blood Loss Check Surgery Details section. Procedure Findings Check Surgery Details section. Procedure Specimens Taken Check Surgery Details section.
--- OUTSIDE RECORDS SUMMARY | 2024-01-18 15:37 | XMS_ITS | Referral Summary ---
Author Organization [facility] Address [address] [place] [address]. [place] [address] Care Team Providers Care Top Precipitator Operator Helper Name Role Phone No Ref-Primary, Physician Primary [...] of Treatment Not on file Care Teams Top Precipitator Operator Helper Relationship Specialty Start Date End Date No Ref-Primary, Physician PCP - General 06/19/20
--- OUTSIDE RECORDS SUMMARY | 2024-01-18 15:37 | XMS_ITS | Clinical Summary ---
Author Organization [facility] Address [place], [place] [address] Care Team Providers Care Community Educator Name Role Phone Deion Wagner MD Primary Care Provider + Allergies Active Allergy Reactions Criticality Noted Date Comments Penicillins *Unknown 06/05/2021 Medications Medication Sig Dispensed Refills Start Date End Date Status atorvastatin (LIPITOR) 10 mg tablet 03/23/2021 Active Butalbital-Acetaminophe n-Caff 50-300-40 mg cap 06/02/2021 A ctive butalbitaL-acetaminophe n 50-300 mg tab 02/21/2021 Active oxyCODONE (ROXICODONE) 5 mg immediate release tablet 05/19/2021 Active oxyCODONE-acetaminophen (PERCOCET) 5-325 mg per tablet 05/08/2021 Active pantoprazole (PROTONIX) 40 mg delayed-release tablet 04/12/2021 Active traMADoL (ULTRAM) 50 mg tablet 05/21/2021 Active acetaminophen/diphenhyd ramine (TYLENOL PM EXTRA STRENGTH ORAL) Take by mouth. Active sennosides/docusate sodium (SENNA S ORAL) Take by mouth. Active CALCIUM CARBONATE ORAL Take by mouth. Active psyllium husk (METAMUCIL ORAL) Take by mouth. Acti ve ofloxacin 0.3 % ophthalmic (OCUFLOX) 0.3 % ophthalmic solution Place 1 Drop into the left eye 4 times daily. 5 mL 06/05/2021 Active prednisoLONE acetate 1% ophthalmic (ECONOPRED PLUS, PRED FORTE, OMNIPRED) suspension Place 1 Drop into the left eye 4 times daily. SHAKE WELL 10 mL 06/05/2021 Active Social History Tobacco Use Types [...] Comments Blood Pressure 112/76 06/05/2021 8:20 AM FISHING VESSEL CAPTAIN Pulse 68 06/05/2021 8:20 AM FISHING VESSEL CAPTAIN Temperature 36.1 ??C (97 ??F) 06/05/2021 6:36 AM FISHING VESSEL CAPTAIN Respiratory Rate 16 06/05/2021 8:20 AM FISHING VESSEL CAPTAIN Oxygen Saturation 96% 06/05/2021 8:20 AM FISHING VESSEL CAPTAIN Inhaled Oxygen Concentration - - Weight 83.2 kg (183 lb 8 oz) 06/05/2021 6:00 AM FISHING VESSEL CAPTAIN Height 177.8 cm (5' 10) 06/05/2021 6:00 AM FISHING VESSEL CAPTAIN Body Mass Index 26.33 06/05/2021 6:00 AM FISHING VESSEL CAPTAIN Plan of Treatment Upcoming Encounters Date Type Department Care Team (Late st Contact Info) Description 01/26/2024 3:30 PM CDT Office Visit [facility] [address] [place] [address] Duy Nolasco MD [address] [place] [address] Advance Directives * Full Code (Latest Code Status on File) Date Activated Date Inactivated Comments 06/05/2021 6:17 AM 06/05/2021 10:45 AM Question Answer Comments Code Status Discussion: Other Care Teams Community Educator Relationship Specialty Start Date End Date Deion Wagner MD [address] [place] [address] PCP - General Family Practice 05/14/21
--- OUTSIDE RECORDS SUMMARY | 2024-01-18 15:37 | XMS_ITS | Clinical Summary ---
Author Organization [facility] Address [address] [place] [address]. [place] [address] Care Team Providers Care Dropper Tank Storage Name Role Phone No Ref-Primary, Physician Primary [...] of Treatment Not on file Care Teams Dropper Tank Storage Relationship Specialty Start Date End Date No Ref-Primary, Physician PCP - General 06/19/20
== END 2024-01-18 15:35 | disposition home or self-care (01) ==
PROVIDERS: PCP Family Medicine; Visit Provider Family Medicine
DX: R53.83 Other fatigue (principal); Z12.5 Encounter for screening for malignant neoplasm of prostate
CPT/HCPCS: 80048; 84443; 85025; G0103

== ENCOUNTER 2024-11-16 12:21 | Outpatient (CLI) | payer MEDICARE, OTHER, SELFPAY | END 2024-11-16 12:22 | disposition home or self-care (01) | PROVIDERS: PCP Family Medicine; Visit Provider Family Medicine | DX: E78.2 Mixed hyperlipidemia (principal); R97.20 Elevated prostate specific antigen [PSA]; Z12.5 Encounter for screening for malignant neoplasm of prostate | CPT/HCPCS: 80048; 80061; 84153; 84460 ==

== ENCOUNTER 2025-05-08 09:41 | Outpatient (CLI) | payer MEDICARE, OTHER, SELFPAY | END 2025-05-08 09:42 | disposition home or self-care (01) | PROVIDERS: PCP Family Medicine; Visit Provider Family Medicine | DX: R53.83 Other fatigue (principal); R41.3 Other amnesia | CPT/HCPCS: 80048; 82607; 84443; 85025 ==

== ENCOUNTER 2025-05-13 05:28 | Emergency (ER) | payer OTHER, MEDICARE, SELFPAY ==
--- OUTSIDE RECORDS SUMMARY | 2025-05-13 05:30 | XMS_ITS | Clinical Summary ---
Author Organization [facility] Address [address] [place] [address] Care Team Providers Care Computer Bookkeeper Name Role Phone None Reported, Pcp Primary Care Provider Unavail able Source Comments Patient records contain information from all sites at [facility]. For routine questions regarding patient records, call [phone] during business hours, M-F 8:00 AM - 5:00 PM Central Time. Record requests for emergency care only can be directed to [phone] at any time.[facility] Allergies Active Allergy Reactions Criticality Noted Date Comments Penicillins Other (see comments) ,Hives (Reselect Reaction),Itching,Rash 07/05/1971 Medications * This document contains information received from the source organization and may not represent a complete record from that organization. atorvastatin (LIPITOR) 20 mg tablet Take 20 mg by mouth at bedtime. 3 Active butalbital-acet aminophen-caff (FIORICET) 50-300-40 mg per capsule every 6 (six) hours as needed for migraine. 3 Active esomeprazole (NexIUM) [address] capsule Take 40 mg by mouth every morning before breakfast. 3 Active tamsulosin (FLOMAX) 0.4 mg 24 hr capsule daily. 3 Active traZODone (DESYREL) 150 mg tablet Take 150 mg by mouth at bedtime as needed for sleep. Takes trazodone HCL tabs, one 150 mg tablet daily. 3 Active venlafaxine XR (EFFEXOR-XR) 150 mg 24 hr capsule Take 150 mg by mouth daily. 3 Active polyethylene glycol (MIRALAX) 17 gram/dose oral powder Take 17 g by mouth as needed for constipation. Dissolve each 17 g dose in 240 mL (8 ounces) of beverage. (Uses either Miralax or Metamucil interchangeably. ) Active escitalopram (LEXAPRO) 20 mg tablet Take 20 mg by mouth at bedtime. 3 Active oxyCODONE (ROXICODONE) 5 mg immediate release tabletIndicatio ns:Acute Pain Take 1 tablet (5 mg total) by mouth every 4 (four) hours as needed for severe pain or score 7-10 of 10 Indication: Acute Pain. 5 tablet 01/21/2023 8:54 PM CDT 3 Active acetaminophen (TYLENOL) 500 mg tablet Take 2 tablets (1,000 mg total) by mouth every 6 (six) hours as needed for moderate pain or score 4-6 of 10 or mild pain or score 1-3 of 10. 3 Active Additional Information Patient taking differently:1,000 mg oral Every 6 hours PRN, moderate pain or score 4-6 of 10, mild pain or score 1-3 of 10,Takes four 500 mg at a time for headaches., Informant: Self, Reported on 02/17/2023 ibuprofen (ADVIL,MOTRIN) 200 mg tablet Take 3 tablets (600 mg total) by mouth every 6 (six) hours as needed for pain. Take with food. 3 Active propranoloL (INDERAL) 10 mg tablet Take 10 mg by mouth 2 (two) times a day. Takes one 10 mg tablet twice daily, total of 20 mg. 3 Active aspirin-acetami nophen-caffeine (EXCEDRIN MIGRAINE) 250-250-65 mg per tablet Take [...] by your partner or ex-partner? No 10/28/2022 Hunger Vital Sign Answer Date Recorded [...] place to sleep or slept in a nursing home (including now)? No 10/28/2022 Education Answer Date Recorded What is the highest level of school you have completed or the highest degree you have received? Some college, no degree 10/28/2022 Sex and Gender Information Value Date Recorded Sex Assigned at Male 10/28/2022 11:01 AM CDT Legal Sex Male 1:07 PM CDT Gender Identity Male 10/28/2022 11:01 AM CDT Sexual Orientation Straight 10/28/2022 11 :01 AM CDT Last Filed Vital Signs Vital Sign Reading Time Taken Comments Blood Pressure 139/91 01/21/2023 8:31 PM CDT Pulse 59 01/21/2023 8:31 PM CDT Temperature 36.7 C (98.1 F) 01/21/2023 7:30 PM CDT Respiratory Rate 18 01/21/2023 8:31 PM CDT Oxygen Saturation 95% 01/21/2023 8:31 PM CDT Inhaled Oxygen Concentration - - Weight 81.8 kg (180 lb 5.4 oz) 01/21/2023 12:40 PM CDT Height 177.8 cm (5' 10) 01/21/2023 12:40 PM CDT Body Mass Index 25.88 01/21/2023 12:40 PM CDT Plan of Treatment Health Maintenance Due Date Last Done Comments CT Colonography 1957 Cologuard 1957 FIT 1957 Fasting Glucose for Diabetes Screening 1957 Hepatitis C Screening 1957 Depression Screening (Annual PHQ-2) 07/05/2024 Fall Risk Screen (Annual) 07/05/2024 COVID-19 Vaccine ( season) 2025 10/29/2023, 04/01/2023, 04/21/2022, Additional history exists Influenza Vaccine (#1) 2025 , 04/21/2022, 03/29/2021, Additional history exists DTaP,Tdap,and Td Vaccines (2 - Td or Tdap) 05/05/2031 05/05/2021 Colonoscopy 03/05/2032 03/05/2022, 08/21/2021 Colorectal Cancer Screening 03/05/2032 Zoster Vaccines Completed 03/13/2020, 09/16/2019 Pneumococcal vaccine (50+ years) Completed 01/18/2023 IPV Vaccines Aged Out No longer eligi ble based on patient's age to complete this topic Medical Devices Implanted Type Area Machine Baster Device Identifier Shelf Expiration Date Model / Serial / Lot Abtmnt Hd Ci Baha Fxtr Bi300 4 - [id number] Implanted:Qty: 1 on 07/05/2016 at [facility] Explanted: 023 (Quantity not on file) BAHA Device Right: Ear Cochlear Limited 06/02/2027 [id number] / / [id number] Description:Baha device impl anted approximately 2017 [address] a Dr. Webb, unknown entry. Explanted 01/21/2023. Proc Hd Ci Osia - [id number] - [id number] Implanted:Qty: 1 on 01/21/2023 by Jossue Webb M.D. at [facility] Cochlear Implant Right: Ear Cochlear Limited 11/29/2024 [id number] / [id number] / Description:Head Wrap Needed May need MR57 per Dr. Topete for Brain and C spine Send calendar invite to physicist Device tech needed to wrap head and to scan 1.5T 60 min time limit Head T/R Coil Ave SOL < or = 3.2 W/kg (Physicist needed for metal suppression even with magnet removed) Amirah Quezada(MRSO) 08-17-24 Max Body SOL < or = 2 W/kg Get approval from Dr. Topete to scan head and neck MRI and which scanner. MR57 worked well but scans were over 15 minutes. MRI exams below the neck do not need pre approval from Dr. Topete. [email or web address] Osia 2 Sound Processor Implanted:Qty: 1 on 01/21/2023 by Jossue Webb M.D. at [facility] Cochlear Implant Right: Ear Cochlear Limited [id number] / / Explanted Type Area Machine Baster Device Identifier Shelf Expiration Date Model / Serial / Lot Cochlear Implant Implanted:Angelica Dominguez M.D. (Quantity not on file) Cochlear Implant Right: Ear Insurance [facility] [employer] Advance Directives For more information, please contact: [phone] * Full Code (Latest Code Status on File) Date Activated Date Inactivated Comments 01/21/2023 7:38 PM 01/21/2023 10:42 PM Question Answer Comments Full Code: Not Discussed Due to: Patient does not have the [facility] Care Teams Computer Bookkeeper Relationship Specialty Start Date End Date None Reported, Pcp PCP - General Family Medicine 01/21/23
--- OUTSIDE RECORDS SUMMARY | 2025-05-13 05:30 | XMS_ITS | Continuity of Care Document ---
Author Name [facility] Organization [facility] Care Team Providers Care High Pressure Kettle Operator Name Role Phone [facility] Unavailable Unavailable Problems Combined list of problems from Department of Defense and Veterans Affairs facilities. It does not include entries that were removed or entered in error. Problem Status Onset Date Problem Type Date of Resolution Comments Source CONDUCT HEARING LOSS NOS Active Condition [facility] Immunizations Combined list of available immunizations from the Department of Defense and Veterans Affairs facilities. Immunization Series Date Given Administered By Site Reaction Lot Number CVX Code Drug Sales And Service Specialist Status Comments Source COVID-19, mRNA, LNP-S, PF, 100 mcg or 50 mcg dose 2021 SHAHANA, [employer] (MOD) Not Given COVID-19, mRNA, LNP-S, PF, 100 mcg or 50 mcg dose [facility] influenza, injectable, quadrivalent, preservative free 2020 SHAHANA, () Not Given influenza , injectabl e, quadrival ent, preservat anny free DoD zoster recombinant 2019 SHAHANA, () Not Given zoster recombina nt DoD influenza, injectable, quadrivalent, preservative free 2019 HARKINS, () Not Given influenza , injectabl e, quadrival ent, preservat anny free [facility] zoster recombinant 2019 OVERHOLT, () Not Given zoster recombina nt [facility] Social History Combined list of available smoking, tobacco, and other social history from Department of Defense and Veterans Affairs facilities. Social History Type Response Date Comment Sour e This section is an empty social history section. [facility]
--- OUTSIDE RECORDS SUMMARY | 2025-05-13 05:30 | XMS_ITS | Clinical Summary ---
Author Organization [facility] Address [address] [place] [address] Care Team Providers Care Relay Mechanic Name Role Phone No Ref-Primary, Physician Primary Care Provider Allergies No known active allergies Social History Tobacco Use Types Packs/Day Years Used Date Smoking Tobacco: Never Assessed Adolescent Education Answer Date Record ed Getting School Help Needed Not on file 03/27 Sex and Gender Information Value Date Recorded Sex Assigned at Not on file Legal Sex Male 3:11 PM CDT Gender Identity Not on file Sexual Orientation Not on file Plan of Treatment Not on file Insurance / Care Teams Relay Mechanic Relationship Specialty Start Date End Date No Ref-Primary, Physician PCP - General 06/19/20
--- OUTSIDE RECORDS SUMMARY | 2025-05-13 05:30 | XMS_ITS | Data Portability ---
Author Organization [facility], [facility] Address [address] [place] [address] Care Team Providers Care Certified Medical Asst Name Role Phone EMELY DEIGO Referring Provider [phone] Assessment No assessment recorded. Plan of Treatment Reminders Order Date Submit Date Provider Last Modified By Organization Details Last Modified Time Details Appointments None record ed. Lab None record ed. Referral None record ed. Procedures None record ed. Surgeries None record ed. Imaging None record ed. Medication Orders None record ed. Patient TargetsNo targets recorded. Patient InstructionsNo instructions recorded. Reason for Referral None Reported. Problems Name Problem SNOMED Code Status Onset Date Resolution Date Notes Provider Name and Address Organization Details Recorded Time Benign prostatic hyperplasia with outflow obstruction [id number] Active 2023 TURP around 2015 in [facility] good results . Reji Hull MD [address] [place] [address],[address] [place] [address], [phone], [facility] 16:37:13 Problem Notes None recorded. Procedures Surgical History Date Name Laterality Status Provider Name and Address Organization Details Recorded Time 03/05/20 22 colonoscopy completed Reji Hull MD [address] [place] [address],[address] [place] [address], [phone], [facility] 03/09/2024 16:34:27 03/05/20 14 transurethral prostatectomy completed Reji Hull MD [address] [place] [address],[address], [phone], [facility] 03/09/2024 16:33:49 Imaging Results None recorded. Procedure Notes None recorded. Medical Equipment None Reported. Allergies Allergen ID Allergen Name Allergen Category Reaction Reaction Severity Criticality Documentation Date Start Date Code Code System Note Provider Name and Address Organization Details Recorded Time 221285 Product containin g penicilli n (product) medicatio n Not available Not available Not available 03/09/2024 97343 8001 SNOMED Reji Hull MD [address] [place] [address],[address], [phone], [facility] 4 16:31:30 Medications Name Sig Start Date Stop Date Status Note LastModified by Organization Details LastModified Time atorvastatin 20 mg tablet active Not Available Not Available Not Available ofloxacin 0.3 % eye drops 2023 completed Not Available Not Available Not Available propranolol ER 60 mg capsule,24 hr,extended release active Not Available Not Available Not Available venlafaxine ER 150 mg capsule,extend ed release 24 hr active Not Available Not Available Not Available propranolol 10 mg tablet 2023 completed Not Available Not Available Not Available prednisolone acetate 1 % eye drops,suspensi on 2023 completed Not Available Not Available Not Available tamsulosin 0.4 mg capsule active Not Available Not Available N ot Available trazodone 150 mg tablet active Not Available Not Available No t Available esomeprazole magnesium 40 mg capsule,delaye d release 2023 completed Not Available Not Available Not Available cefdinir 300 mg capsule 2023 completed Not Available Not Available Not Available neomycin-polym yxin-hydrocort 3.5 mg-10,000 unit/mL-1 % ear drops,susp 2023 completed Not Available Not Available Not Available escitalopram 20 mg tablet active Not Available Not Available Not Available ketorolac 0.4 % eye drops 2023 completed Not Available Not Available Not Available butalbital-britney taminophen-caf feine 50 mg-300 mg-40 mg capsule 2023 completed Not Available Not Available Not Available Fioricet with Codeine 50 mg-300 mg-40 mg-30 mg capsule 2023 completed Not Available Not Available Not Available Vitals Date Recorded Body height Body mass index (BMI) Body weight Provider Name and Address Organization Details Last Updated DateTime 03/09/2024 177.8 cm 24.4 kg/m2 44491.7 g Reji Hull MD [address] [facility],[address], [place], [place], [address] [place] [address] 03/09/2024 16:31:21 Social History Question Answer Notes LastModified by Organizat ion Details LastModified Time Tobacco Smoking Status Never Smoker Reji Hull MD [address] [place] [address],[address], [address], [facility] 03/09/2024 16:33:07 What Is Your Level Of Caffeine Consumption? Heavy Information not available 03/09/2024 What Was The Date Of Your Most Recent Tobacco Screening? 03/09/2024 Information not available 03/09/2024 Sex: Unknown Functional Status Question Answer Note LastModified by Organizat ion Details LastModified Time What is your level of alcohol consumption? Occasional Information not available 03/09/2024 Mental Status None recorded. Family History Relationship Description Onset Age of this Age Resolved Age Notes LastModified by Organization Details LastModified Time Father No current problems or disability [email or web address] Not available 03/09 16:33:00 Mother No current problems or disability [email or web address] Not available 03/09 16:33:00 Medical History No medical history recorded. Immunizations Vaccine Type Date Status Note Provider Nam e and Address Organization Details Recorded Time Influenza, split virus, quadrivalent, preservative 7 completed Reji Hull MD [address] [place] [address],[address], [phone], [facility] 03/09/2024 16:31:11 Influenza, split virus, quadrivalent, preservative 6 completed Reji Hull MD [address] [place] [address],[address], [phone], [facility] 03/09/2024 16:31:11 Influenza, recombinant, quadrivalent, PF 9 completed Reji Hull MD [address] [place] [address],[address], [phone], [facility] 03/09/2024 16:31:11 zoster recombinant 0 completed Reji Hull MD [address] [place] [address],[address], [phone], [facility] 03/09/2024 16:31:11 zoster recombinant 0 completed Reji Hull MD [address] [place] [address],[address], [place], [address], [facility] 03/09/2024 16:31:11 Influenza, high-dose, quadrivalent, PF 3 completed Reji Hull MD [address] [place] [address],[address], [place], [address], [facility] 03/09/2024 16:31:11 COVID-19, mRNA, LNP-S, PF, 100 mcg/0.5mL dose or 50 mcg/0.25mL dose 2 completed Reji Hull MD [address] [place] [address],[address], [address], [facility] 03/09/2024 16:31:11 COVID-19, mRNA, LNP-S, PF, 100 mcg/0.5mL dose or 50 mcg/0.25mL dose 1 completed Reji Hull MD [address] [place] [address],[address], [place], [address], [facility] 03/09/2024 16:31:11 COVID-19, mRNA, LNP-S, PF, 30 mcg/0.3 mL dose 1 completed Reji Hull MD [address] [place] [address],[address], [address], [facility] 03/09/2024 16:31:11 COVID-19, mRNA, LNP-S, PF, 30 mcg/0.3 mL dose 1 completed Reji Hull MD [address] [place] [address],[address], [address], [facility] 03/09/2024 16:31:11 Pneumococcal conjugate PCV20, polysaccharide [id number] conjugate, adjuvant, PF 3 completed Reji Hull MD [address] [place] [address],[address], [place], [address], [facility] 03/09/2024 16:31:11 COVID-19, mRNA, LNP-S, bivalent, PF, 50 mcg/0.5 mL or 25mcg/0.25 mL dose 2 completed Reji Hull MD [address] [place] [address],[address], [place], [address], [facility] 03/09/2024 16:31:11 RSV, recombinant, protein subunit RSVpreF, adjuvant reconstituted, 0.5 mL, PF 3 completed Reji Hull MD [address] [place] [address],[address], [place], [address], [facility] 03/09/2024 16:31:11 COVID-19, mRNA, LNP-S, PF, 50 mcg/0.5 mL 4 completed Reji Hull MD [address] [place] [address],[address], [place], [address], [facility] 03/09/2024 16:31:11 COVID-19, mRNA, LNP-S, PF, 50 mcg/0.5 mL 3 completed Reji Hull MD [address] [place] [address],[address], [place], [address], [facility] 03/09/2024 16:31:11 Tdap 1 completed Reji Hull MD [address] [place] [address],[address], [place], [address], [facility] 03/09/2024 16:31:11 Influenza, split virus, trivalent, preservative 3 completed Reji Hull MD [address] [place] [address],[facility] [address], [place], [address], [facility] 03/09/2024 16:31:12 Influenza, split virus, quadrivalent, PF 0 completed Reji Hull MD [address] [place] [address],[address], [place], [address], [facility] 03/09/2024 16:31:12 Influenza, split virus, quadrivalent, PF 1 completed Reji Hull MD [address] [place] [address],[address], [place], [address], [facility] 03/09/2024 16:31:12 Influenza, split virus, quadrivalent, PF 2 completed Reji Hull MD [address] [facility],[address] [place] [address], [address], [facility] 03/09/2024 16:31:12 Influenza, split virus, quadrivalent, PF 8 completed eRji Hull MD [address] [place] [address],[address] [place] [address], [phone], [facility] 03/09/2024 16:31:12 Past Encounters Encounter ID Performer Location Encounter Start Date Encounter Closed Date Diagnosis/Indication Diagnosis SNOMED-CT Code Diagnosis ICD10 Code Diagnosis IMO Codes Diagnosis Note [id number] Reji Hull MD [facility] [address] [place] [address] 03/09/2024 15:53:15 03/15/2024 18:52:51 Prostate specific antigen above reference range 272770619 R97.20 Normal prostate exam in the setting of a rise in PSA. Discussed immediate prostate biopsy, prostate MRI and surveillan ce with a PSA in 6-12 months. Will proceed with the later and if it confirms a sustained velocity, proceed with biopsy. Risks and benefits of biopsy discussed. Health Concerns Section Related Observation LastModified by Organization Detai ls LastModified Time None Recorded Concern Status LastModified by Organization Details LastModified Time None Recorded Advance Directives Directive None Recorded Payers Insurance Date Sequence Insurance Name Policy Number Policy Palencia Covered Member ID Palencia Member ID Guarantor Name 03/15/2024 1 [facility] (MEDICARE REPLACEMENT/A DVANTAGE - PPO) [id number] Rashad Kiran [id number] Rashad Kiran Notes Date Note Type Note Provider Name and Address Organization Details Recorded Time 03/09/2024 text/html Referred for an elevated PSA of 4.51.He moved from [place] five years ago. He did see a Urologist there and had a TURP for BPH many years ago. He's recently added Flomax. Mother with stomach cancer and a sister with breast cancer. Reji Hull MD [address] [place] [address],[address], [place], [address], [facility] 03/09/2024 16:45:06
--- OUTSIDE RECORDS SUMMARY | 2025-05-13 05:30 | XMS_ITS | Clinical Summary ---
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 Active CALCIUM CARBONATE ORAL Take by mouth. Active psyllium husk (METAMUCIL ORAL) Take by mouth. Activ e tamsulosin (FLOMAX) 0.4 mg capsule 3 Active mupirocin 2% ointmentIndica tions:Cellulit is of face Apply topically to affected area(s) three times daily. 15 g 5 Active propranolol ER 60 mg Cs24 Sustained-Rele ase capsule Take 60 mg by mouth once daily. 4 Active venlafaxine 150 mg Extended-Relea se capsuleIndicat ions:Major depressive disorder, recurrent episode, severe with seasonal pattern (HC) Take 1 Capsule (150 mg) by mouth once daily with a meal. 90 Capsule 3 5 Active traZODone 100 mg tabletIndicati ons:Chronic insomnia Take 1 Tablet (100 mg) by mouth at bedtime. 90 Tablet 2 5 Active acetaminophen SR 650 mg Extended-Relea se tablet Take 1 Tablet (650 mg) by mouth every 8 hours if needed (physical pain). Max acetaminophen dose: 4000mg in 24 hrs. 5 Active aspirin-acetam inophen-caffei ne (Excedrin Migraine) 250-250-65 mg Take 1 Tablet by mouth every 6 hours if needed for Headache (physical pain). Max acetaminophen dose: 4000mg in 24 hrs. 5 Active acetaminophen- caffeine-butal bital 325-40-50 mg Take 1 Tablet by mouth every 4 hours if needed for Migraine. Max 6 doses per day. Max acetaminophen dose 4000mg in 24 hrs. 5 Active CPAPIndication s:SHAWANDA (obstructive sleep apnea) RESMED CPAP (E0601) machine for home use at pressure: 5-15cmw, Choice of mask (A7030 or A7034) w/full face cushion (A7031) x1/mo, nasal cushion (A7032) x2/mo, or nasal pillows (A7033) x 2/mo; Length of Need: 99 months; Frequency of use: Daily 1 Each 5 Active venlafaxine (EFFEXOR XR) 75 mg cp24 Extended-Relea se capsuleIndicat ions:Major depressive disorder, recurrent episode, severe with seasonal pattern (HC) Take 1 Capsule (75 mg) by mouth once daily with a meal. Take with a 150 mg capsules for a total of 225 mg daily 90 Capsule 2 5 Active Active Problems Problem Noted Date Diagnosed Date Alcohol use disorder, mild, abuse 11/06/2024 Major depressive disorder, r ecurrent episode, severe with seasonal pattern 10/31/2024 Encounters Date Type Department Care Team Description 04/24/2025 Office Visit [facility] [address] [place] [phone] Juma Arriola PsyD, LP Late Cancel Appointment 04/24/2025 Telephone [facility] [address] [place] [phone] Juma Arriola PsyD, LP Late Cancel Appointment 04/16/2025 Telephone [facility] [address] [place], [place] [id number] Duy Nolasco MD 03/13/2025 1:30 PM CDT Office Visit [facility] [address] [facility] [phone] Juma Arriola PsyD, LP Individual Therapy 03/13/2025 Travel 02/27/2025 Telephone [facility] [address] [place] [phone] Juma Arriola PsyD, LP FYI - RE: CANCELLED APPOINTMENT from Last 3 Months Family History Medical History Relation Name Comments Schizophrenia Brother Suicide Attempts Brother incomplete, when 13 years old, cut his wrist Dementia Mother Alcoholism Other aunts, uncles Alzheimer's disease Other paternal uncle Relation Name Status Comments Brother Mother Other Social History Tobacco Use Types Packs/Day Years Used Date Smoking Tobacco: Never Smokeless Tobacco: Never Alcohol Use Standard Drinks/Week Comments Yes 12 (1 standard drink = 0.6 oz pure alcohol) average twice a week, goes in social bouts PHQ-2 Answer Date Recorded PHQ-2 TOTAL SCORE 0 12/22/2024 Sex and Gender Information Value Date Recorded Sex Assigned at Not on file Legal Sex Male 2:41 PM CDT Gender Identity Not on file Sexual Orientation Not on file Obstetrics History Last Filed Vital Signs Vital Sign Reading Time Taken Comments Blood Pressure 121/77 12/25/2024 2:38 PM CDT Pulse 55 12/25/2024 2:38 PM CDT Temperature 36.1 C (97 F) 06/05/2021 6:36 AM REGULATORY AFFAIRS COORDINATOR Respiratory Rate 16 06/05/2021 8:20 AM REGULATORY AFFAIRS COORDINATOR Oxygen Saturation 97% 12/25/2024 2:38 PM CDT Inhaled Oxygen Concentration - - Weight 84.1 kg (185 lb 6.4 oz) 12/25/2024 2:38 P M CDT Height 176 cm (5' 9.29) 12/25/2024 2:38 PM CDT Body Mass Index 27.15 12/25/2024 2:38 PM CDT Plan of Treatment Upcoming Encounters Date Type Department Care Team (Late st Contact Info) Description 05/22/2025 12:30 PM REGULATORY AFFAIRS COORDINATOR Office Visit [facility] [address] [place] [phone] Juma Arriola PsyD, LP [address] [place] [address] 06/12/2025 12:30 PM REGULATORY AFFAIRS COORDINATOR Office Visit [facility] [address] [place] [phone] Juma Arriola PsyD, KAT [address] [place] [address] 08/27/2025 2:30 PM REGULATORY AFFAIRS COORDINATOR Office Visit [facility] [address] [place] [address] Duy Nolasco MD [address] [place] [address] 11/19/2025 1:30 PM CDT Office Visit [facility] [address] [place] [address] Román Grady MD [address] [place] [address] Health Maintenance Due Date Last Done Comments Tetanus booster 1968 Hepatitis C screening for age 18-79 12/22/1975 Pneumococcal series for age 50+ (1 of 2 - PCV) 1976 Lipids for age 45-75 2002 Zoster (shingles) series for age 50+ (1 of 2) 12/22/2007 Medicare Wellness for age 65+ 2022 Influenza Vaccine (#1) 2025 BMI (ht and wt on same day) for age 18+ 12/25/2025 12/25/2024, 10/31/2024, 09/11/2024, Additional history exists Depression screening for age 12+ 12/25/2025 12/25/2024, 12/22/2024, 11/06/2024, Additional history exists Colonoscopy through age 75 08/21/2031 08/21/2021 RSV vaccine for adults or (1 - 1-dose 75+ series) 2032 Hepatitis B series for 19+ Aged Out N o longer eligible based on patient's age to complete this topic Procedures Procedure Name Priority Date/Time Associated Diagnosis Comments SCAN-COLONOSCOPY 08/21/2021 12:0 0 AM REGULATORY AFFAIRS COORDINATOR from Last 3 Months or Most Recently Relevant to Health Maintenance Results * SCAN-COLONOSCOPY (08/21/2021 12:00 AM REGULATORY AFFAIRS COORDINATOR) us Scanner OTHER Final Result from Last 3 Months or Most Recently Relevant to Health Maintenance Insurance [employer] [facility] MR Advance Directives * Full Code (Latest Code Status on File) Date Activated Date Inactivated Comments 06/05/2021 6:17 AM 06/05/2021 10:45 AM Question Answer Comments Code Status Discussion: Other Care Teams Automatic Drill Operator Relationship Specialty Start Date End Date Deion Wagner MD [address] [place] [address] PCP - General Family Practice 05/14/21
[2025-05-13 05:32] VITALS: BP 133/87; PULSE 58; RESP 16; TEMP 36.4; O2SAT 98; BMI 25.1
--- NOTE | 2025-05-13 05:59 | ED.GENADULT ---
HPI - General Adult General Chief complaint: Skin/Abscess/Foreign Body Stated complaint: bilateral index finger poss infection Time Seen by Provider: 05/13/25 05:41 Source: patient Mode of arrival: ambulatory History of Present Illness HPI narrative: 69-year-old male, not immunocompromised, presents to the emergency department for evaluation of tenderness, redness and swelling of left greater than right index finger pads. Was evaluated in urgent care about a day and a half ago, started on Keflex. Patient reports that he has been doing the Epsom salt soaks that were recommended and taking his antibiotic. He feels like the right side might start to be improving that the left side seems to be getting a little more red and swollen. He noticed a white area as well. No drainage. No fever. No streaking up the arm. No difficulty moving any of his fingers. 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 Prior note reviewed. Past medical history reviewed. Medications noted. Allergy to penicillin. Related Data Home Medications ?Medication ?Instructions ?Recorded ?Confirmed venlafaxine 75 mg capsule,extended 75 mg PO DAILY 11/16/24 05/11/25 release 24 hr Previous Rx's ?Medication ?Instructions ?Recorded esomeprazole magnesium 40 mg 40 mg PO QDAY #90 caps 12/18/24 capsule,delayed release (Nexium) venlafaxine 150 mg 150 mg PO DAILY #90 caps 01/11/25 capsule,extended release 24 hr atorvastatin 20 mg tablet 20 mg PO QHS #90 tabs 01/16/25 propranolol 60 mg capsule,24 60 mg PO QDAY #90 caps 01/16/25 hr,extended release (Inderal LA) tamsulosin 0.4 mg capsule (Flomax) 0.4 mg PO QDAY #90 caps 04/19/25 trazodone 150 mg tablet 150 mg PO QHS sleep #30 tabs 04/26/25 cephalexin 500 mg capsule 500 mg PO BID 7 days #14 caps 05/11/25 Allergies Allergy/AdvReac Type Severity Reaction Status Date / Time Penicillins Allergy Unknown Verified 05/11/25 13:00 [facility] Medical History Mixed hyperlipidemia ?E78.2 - Mixed hyperlipidemia (ICD-10) Health care directive on file ?Z78.9 - Other specified health status (ICD-10) Insomnia ?G47.00 - Insomnia, unspecified (ICD-10) Migraine ?G43.909 - Migraine, unspecified, not intractable, without status migrainosus (ICD-10) Essential tremor ?G25.0 - Essential tremor (ICD-10) Recurrent major depressive disorder ?F33.9 - Major depressive disorder, recurrent, unspecified (ICD-10) BPH (benign prostatic hyperplasia) ?N40.0 - Benign prostatic hyperplasia without lower urinary tract symptoms (ICD-10) Tinnitus ?H93.19 - Tinnitus, unspecified ear (ICD-10) Cochlear implant in place ?Z96.21 - Cochlear implant status (ICD-10) SHAWANDA (obstructive sleep apnea) ?G47.33 - Obstructive sleep apnea (adult) (pediatric) (ICD-10) GERD (gastroesophageal reflux disease) ?K21.9 - Gastro-esophageal reflux disease without esophagitis (ICD-10) Chronic right shoulder pain ?M25.511 - Pain in right shoulder (ICD-10) ?G89.29 - Other chronic pain (ICD-10) Chronic migraine w/o aura w/o status migrainosus, not intractable ?G43.709 - Chronic migraine without aura, not intractable, without status migrainosus (ICD-10) Barretts esophagus ?K22.70 - Mccain's esophagus without dysplasia (ICD-10) Anxiety ?F41.9 - Anxiety disorder, unspecified (ICD-10) Surgical History History of cochlear implant (10/2016) ?Z96.21 - Cochlear implant status (ICD-10) S/P TURP (status post transurethral resection of prostate) ?Z90.79 - Acquired absence of other genital organ(s) (ICD-10) History of arthroscopy of right shoulder (05/08/21) ?Z98.890 - Other specified postprocedural states (ICD-10) H/O vitrectomy ?Z98.890 - Other specified postprocedural states (ICD-10) History of arthroscopy of left shoulder (11/03/16) ?Z98.890 - Other specified postprocedural states (ICD-10) Family History Father Depression Heart disease Alzheimers disease Brother Schizophrenia Alzheimers disease Mother Dementia Social History Narrative: , 2 kids, 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[employer], 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[employer], nonsmoker, social EtOH What is your current living situation?: I presently have a place to live Problems where you live: no known problems In the past 12 months, utilities in danger of being shut off: no In past 12 months, lack of transportation kept you from medical appts, meetings, work, or getting things needed for daily living: no In the past 12 mos, have been you worried that your food would run out before you had money to buy more?: never true In the past 12 mos, the food you bought just didn't last and you didn't have money to buy more?: never true Smoking Status: Never smoker How often do you have a drink containing alcohol: 2-4 times a month AUDIT-C Alcohol total score: 2 Non-prescribed substance use: denies use Caffeine: Yes How often does anyone, including family, friends and others, physically hurt you: never How often does anyone, including family, friends and others, insult or talk down to you: never How often does anyone, including family, friends and others, threaten you with harm: never How often does anyone, including family, friends and others, scream or curse at you: never Exam Const: Vital Signs, click to edit/add: Vital Signs - 24 hr 05/13/25 05:32 Temperature 97.6 F Pulse Rate [Pulse Oximeter] 58 L Respiratory Rate 16 Blood Pressure [Ri ght Upper Arm] 133/87 Pulse Oximetry 98 Oxygen Delivery Me thod Room Air Documenting provider has reviewed patient's vital signs: yes Common normals: no apparent distress General appearance: cooperative Other: Appears well nourished, well hydrated nontoxic HENMT: Common normals: normocephalic Head and scalp: normocephalic Face and sinus: normal facial exam Resp: Common normals: normal respiratory effort Effort & inspection: able to speak in complete sentences Extremity: Other: Right hand has a healing round abrasion appearing area to the pad of the right index finger. There is no redness or swelling. Has normal range of motion of all of those fingers with no appearing abnormality. On the left side, the pad of the left index finger appears mildly swollen with some mild erythema. In the center of the pad, there is a white area, it is about 3 mm x 3 mm in size. It does not appear fluctuant or have purulent drainage, rather macerated likely from the soaks. But in the center of it there is a black appearing sliver foreign body. The knuckles move normally. There is no redness ascending up the hand or forearm. Wrist appears normal. Psych: Attitude: engaged Mood and affect: euthymic mood Insight: insight good Judgement: judgment good Skin: Common normals: no rashes or lesions noted General skin exam: no rashes or lesions noted Course Course ED Course: 69-year-old male with bilateral index finger pain, likely caused by micro trauma with evidence of foreign body in the left index finger pad. Counseled patient that this was likely brought to the surface from the warm salt soaks that he has been doing. The finger isn't going to heal until the foreign body is removed. His body does seem to be doing it naturally but we can certainly accelerate the process by removing the foreign body here in the ED and can not tell if there is anything deeper as well such as an abscess or other abnormality. He was agreeable to treatment. Verbal consent is obtained. Procedure: Foreign body removal: Areas cleansed with alcohol wipe and with a 30 age half-inch long needle, 0.5 mL of 2% lidocaine without epinephrine is used to create a wheal underneath the sliver. Eleven blade was then used to gently scrape out the sliver, removing entirely. There was no purulent drainage. There was some bleeding which was easily controlled with pressure. Cleansed with gauze a couple of times to examine for further evidence of foreign body, none seen. Patient counseled on findings. Procedure successful. Covered in antibiotic ointment and then wrapped with a couple of Band-Aids. Instructed to leave these in place for the next couple of hours at least some of the bleeding does stop. Try to leave on for 24 hours if possible. Remove dressings every 24 hours, wash hands well, leave open to drive for several minutes. Then reapply antibiotic ointment and Band-Aid for at least the next 2 days. Continue his antibiotics as they are prescribed. Symptoms should start to improve quite a bit in 24-48 hours. If he is not noticing any improvement in 48 hours or if he has ascending redness, fever or other signs of worsening infection, should be evaluated sooner. Written instructions provided, all questions answered Vital Signs Vital signs: Initial Vital Signs Temperature 97.6 F 05/13/25 05:32 Temperature Source Temporal Artery Scan 05/13/25 05:32 Pulse Rate 58 L 05/13/25 05:32 Respiratory Rate 16 05/13/25 05:32 Blood Pressure 133/87 05/13/25 05:32 Blood Pressure Mean 102 05/13/25 05:32 Blood Pressure Position Sitting 05/13/25 05:32 Pulse Oximetry 98 05/13/25 05:32 Oxygen Delivery Method Room Air 05/13/25 05:32 Vital Signs Temperature 97.6 F 05/13/25 05:32 Pulse Rate 58 L 05/13/25 05:32 Respiratory Rate 16 05/13/25 05:32 Blood Pressure 133/87 05/13/25 05:32 Pulse Oximetry 98 05/13/25 05:32 Oxygen Delivery Method Room Air 05/13/25 05:32 Temperature 97.6 F 05/13/25 05:32 Pulse Rate 58 L 05/13/25 05:32 Respiratory Rate 16 05/13/25 05:32 Blood Pressure 133/87 05/13/25 05:32 Pulse Oximetry 98 05/13/25 05:32 Oxygen Delivery Method Room Air 05/13/25 05:32 Discharge Plan Discharge Clinical Impression: Acute foreign body of index finger Patient Disposition: Home, Self-Care Condition: Improved Instructions: Soft Tissue Foreign Body (ED) Additional Instructions: As we discussed, those Epsom salt soaks were effective in helping bring what appeared to be a metal shaving up to the surface. I was able to remove this and there does not seem to be a pocket of pus or deeper foreign body today. I do want you to continue your antibiotic, but things should start to heal more quickly now that the foreign body has been able to be located and removed. Most people notice quite a bit of improvement within 48 hours of this. Please keep the ointment and Band-Aid that I have applied for at least the next couple of hours but it is okay to leave on for 24 hours. If it feels a little too tight, tried await a 1/2 hour and then you may switch it out if it is uncomfortable. Remove the dressing daily, wash her hands well or shower as usual. Reapply antibiotic ointment and a Band-Aid for at least the next 2 days, being should close up nicely after that. If you have not noticed any improvement after 48 more hours, please have this re-evaluated in the clinic. If you have high fever, inability to move your hand, significant signs of redness and streaking up the arm, come in sooner. Activity Level: No Restrictions Discharge Diet: Regular Prescriptions: No Action venlafaxine 75 mg capsule,extended release 24hr 75 mg PO DAILY cephalexin 500 mg capsule 500 mg PO BID 7 Days Qty: 14 0RF esomeprazole magnesium [Nexium] 40 mg capsule,delayed release(DR/EC) 40 mg PO QDAY Qty: 90 3RF venlafaxine 150 mg capsule,extended release 24hr 150 mg PO DAILY Qty: 90 1RF atorvastatin 20 mg tablet 20 mg PO QHS Qty: 90 2RF propranolol [Inderal LA] 60 mg capsule,extended release 24 hr 60 mg PO QDAY Qty: 90 3RF tamsulosin [Flomax] 0.4 mg capsule 0.4 mg PO QDAY Qty: 90 2RF trazodone 150 mg tablet 150 mg PO QHS Qty: 30 1RF Follow Up/Referrals: Deion Wagner MD [Primary Care Provider, Family Practice] Stand Alone Forms: Monae[employer] Info Instructions
== END 2025-05-13 06:12 | disposition home or self-care (01) ==
LOC: ED 06:05
PROVIDERS: Emergency Provider Family Medicine; PCP Family Medicine
DX: S61.241A Puncture wound with foreign body of left index finger without damage to nail, initial encounter (principal); Z88.0 Allergy status to penicillin; W45.8XXA Other foreign body or object entering through skin, initial encounter
CPT/HCPCS: 99283